=== PATIENT | female | born 1950 | race Caucasian/White ===

== ENCOUNTER 2017-04-20 14:15 | Emergency (ER) | payer OTHER ==
--- NOTE | 2017-04-20 16:45 | XRAY Preliminary Report ---
Exam: XR KNEE 4 VIEW LT IMPRESSION: Mild degenerative joint disease with loose body and effusion. [facility] SITE ID: [id number]
--- NOTE | 2017-04-20 16:48 | XRAY Preliminary Report ---
Exam: XR FOOT 3 VIEW LT IMPRESSION: Soft tissue swelling. [facility] SITE ID: [id number]
--- NOTE | 2017-04-20 16:48 | XRAY Report ---
EXAM: LEFT KNEE RADIOGRAPHY EXAM DATE: 04/20/2017 04:28 PM. CLINICAL HISTORY: Fall, pain. COMPARISON: None. TECHNIQUE: 4 views, including oblique views. FINDINGS: Bones: Osteopenia. No definite fracture or other bone lesion. Joints: Mild 3 compartment joint space narrowing with marginal lipping. Moderate joint effusion. At l east one loose body in posterior knee. Soft Tissues: Unremarkable. IMPRESSION: Mild degenerative joint disease with loose body and effusion. [facility] Referring Provider Line: [phone] SITE ID: [id number]
--- NOTE | 2017-04-20 16:51 | XRAY Report ---
EXAM: LEFT FOOT RADIOGRAPHY EXAM DATE: 04/20/2017 04:28 PM. CLINICAL HISTORY: Trauma, pain. COMPARISON: None. TECHNIQUE: 3 views. FINDINGS: Bones: Osteopenia. No definite fracture or other bone lesion. Joints: Marked degenerative changes in the first MTP joint. Otherwise unremarkable. Soft Tissues: Mild soft tissue swelling over the dorsum of the foot. IMPRESSION: Soft tissue swelling. [facility] Referring Provider Line: [phone] SITE ID: [id number]
[2017-04-20] MEDS ORDERED: ACETAMINOPHEN 325 MG TABLET PO STA (17:02)
--- NOTE | 2017-04-20 17:05 | ED Physician Documentation ---
PD HPI SYNCOPE - Stated complaint Stated Complaint: LEFT LEG PX/GLF - Chief complaint Chief Complaint: Ext Problem - History obtained from History obtained from: Patient, Friend - History of Present Illness Witnessed: Unwitnessed Timing - onset: Last night Duration: Unknown Preceding symptoms: Light headed Associated symptoms: No: Seizure, Incontinant of urine, Incontinant of stool, Headache, Vision changes, Chest pain, Palpitations, Diaphoresis, Dyspnea, Nausea / vomiting, Abdominal pain Contributing factors: No: Recent med change, Decreased PO intake, Noxious stimulae, Emotional upset, Just stood up, Exertion Injury occurred: Fell, Other (L knee, ankle and foot pain.). No: Head injury, Neck injury Pain level max: 7 Pain level now: 5 Treatment [employer]ICIAN: Other (none) Similar symptoms before: Other (states thinks she may have passed out and bent her knee behind her. She also thinks she may have tripped. Similar events a month ago. Has an appt with neurology and her PCP in the next week.) Review of Systems Ten Systems: 10 systems reviewed and negative Constitutional: denies: Fever, Chills Ears: denies: Ear pain Nose: denies: Rhinorrhea / runny nose Respiratory: denies: Cough GI: denies: Nausea, Vomiting, Diarrhea Skin: denies: Rash Musculoskeletal: denies: Neck pain, Back pain, Extremity swelling Neurologic: denies: Focal weakness, Numbness, Headache PD PAST MEDICAL HISTORY - Past Medical History Cardiovascular: Atrial fibrillation Psych: Depression, Anxiety Musculoskeletal: Fibromyalgia - Past Surgical History Past Surgical History: Yes General: Cholecystectomy, Gastric surgery Ortho: Spine surgery - Present Medications Home Medications: Ambulatory Orders Medication Instructions Recorded Confirmed Losartan [Cozaar] 50 mg PO DAILY 04/21/14 04/20/17 Multivitamin [Multi Vitamin Daily] 1 tab PO DAILY 04/21/14 04/20/17 SUMAtriptan succinate [Sumatriptan 100 mg PO DAILY PRN 04/21/14 04/20/17 Succinate] Apixaban [Eliquis] 5 mg PO DAILY 01/06/15 04/20/17 lamoTRIgine [LaMICtal] 300 mg PO DAILY 01/06/15 04/20/17 Fluoxetine HCl [Prozac] 20 mg PO BID 04/20/17 04/20/17 Gabapentin 100 mg PO TID 04/20/17 04/20/17 Gabapentin [Neurontin] 600 mg PO DAILY 04/20/17 04/20/17 Hydrocodone/Acetaminophen 1 - 2 each PO Q6H PRN #14 tablet 04/20/17 [Hydrocodon-Acetaminophen 5-325] Prazosin [Minipress] 3 mg PO TID 04/20/17 04/20/17 Ramelteon [Rozerem] 8 mg PO DAILY 04/20/17 04/20/17 - Allergies Allergies/Adverse Reactions: Allergies Allergy/AdvReac Type Severity Reaction Status Date / Time diclofenac sodium * Allergy Unknown Verified 04/20/17 14:25 [From Arthrotec] hornet venom Allergy Anaphylaxis Verified 04/20/17 14:25 iodine Allergy Rash Verified 04/20/17 14:25 misoprostol [From Arthrotec] Allergy Unknown Verified 04/20/17 14:25 morphine Allergy Unknown Verified 04/20/17 14:25 streptomycin [Streptomycin] Allergy Unknown Verified 04/20/17 14:25 - Social History Does the pt smoke?: No Smoking Status: Never smoker Does the pt drink ETOH?: No Does the pt have substance abuse?: No - Immunizations Immunizations are current?: Yes - POLST Patient has POLST: No PD ED PE NORMAL - Vitals Vital signs reviewed: Yes - General General: Alert and oriented X 3, No acute distress - HEENT HEENT: Atraumatic, PERRL, EOMI, Ears normal, Moist mucous membranes, Pharynx benign - Neck Neck: Supple, no meningeal sign, No bony TTP - Cardiac Cardiac: RRR, Strong equal pulses - Respiratory Respiratory: No respiratory distress, Clear bilaterally - Abdomen Abdomen: Soft, Non tender, Non distended - Back Back: No spinal TTP - Derm Derm: Warm and dry, No rash - Extremities Extremities: Other (L knee - ACL, MCL, LCL, PCL intact. NVI. no significant effusion. Mild TTP over L lateral malleolus and dorsum of L foot. No deformity. NVI.) - Neuro Neuro: Alert and oriented X 3, civil rights representative 2-12 intact, No motor deficit, No sensory deficit, Normal speech - Psych Psych: Normal mood, Normal affect Results - Vitals Vitals: Vital Signs - 24 hr 04/20/17 04/20/17 04/20/17 14:20 16:18 17:28 Temperature 36.4 C L 36.8 C Heart Rate 87 91 62 Respiratory 16 16 16 Rate Blood Pressure 117/73 114/43 L 157/92 H O2 Saturation 99 97 100 04/20/17 18:25 Temperature Heart Rate 60 Respiratory 16 Rate Blood Pressure 160/91 H O2 Saturation 98 Oxygen O2 Source Room air - EKG (time done) 1651 Rate: Rate (enter#) (61) Rhythm: NSR [place]: Normal Intervals: Normal [place] QRS: Normal Ischemia: Normal ST segments, Q waves (III, aVF) - Labs Labs: Laboratory Tests 04/20/17 04/20/17 04/20/17 17:10 17:10 17:10 WBC 4.0 L RBC 3.85 L Hgb 12.3 Hct 36.8 L MCV 95.5 MCH 31.9 H MCHC 33.4 RDW 14.9 Plt Count 208 MPV 6.1 L Neut # 2.6 Lymph # 0.7 L [place] # 0.5 Eos # 0.2 Baso # 0.0 Absolute Nucleated RBC 0.00 Nucleated RBC % 0.0 Sodium 136 Potassium 4.4 Chloride 102 Carbon Dioxide 28 Anion Gap 6.0 BUN 23 H Creatinine 1.0 Estimated GFR (MDRD) 56 L Glucose 93 Calcium 9.0 Total Bilirubin 0.4 AST 18 ALT 14 Alkaline Phosphatase 93 Troponin I < 0.04 Total Protein 7.4 Albumin 4.0 Globulin 3.4 Albumin/Globulin Ratio 1.2 Lipase 33 - Rads (name of study) L knee xray Radiology: Prelim report reviewed, EMP read contemporaneously, See rad report ( Mild degenerative joint disease with loose body and effusion. ) L ankle xray Radiology: Prelim report reviewed, EMP read contemporaneously, See rad report ( No evidence of fracture or dislocation. ) L foot xray Radiology: Prelim report reviewed, EMP read contemporaneously, See rad report ( Soft tissue swelling. ) PD MEDICAL DECISION MAKING - ED course Complexity details: reviewed results, re-evaluated patient, considered differential, d/w patient, d/w family ED course: Patient is a 66-year-old female who presents to the emergency department after a fall versus syncopal event last night. No acute findings on EKG telemetry or laboratory testing. States she has passed out several times in the past with no cause found, is being evaluated by her doctor for this. Placed in a hinged knee brace for the left knee sprain with effusion. Will have her follow-up with orthopedics and her doctor for further evaluation and care. Will prescribe pain medication for home. Has a walker at home and will utilize this. Ambulating well once placed into the brace. The brace was set at 0-40. Patient counseled regarding signs and symptoms for which I believe and urgent re-evaluation would be necessary. Patient with good understanding of and agreement to plan and is comfortable going home at this time This document was made in part using voice recognition software. While efforts are made to proofread this document, sound alike and grammatical errors may occur. Departure - Departure Disposition: Home, Self Care Clinical Impression: Knee sprain Qualifiers: Encounter type: initial encounter Involved ligament of knee: unspecified ligament Laterality: left Qualified Code(s): S83.92XA - Sprain of unspecified site of left knee, initial encounter Contusion of ankle, left Qualifiers: Encounter type: initial encounter Qualified Code(s): S90.02XA - Contusion of left ankle, initial encounter Condition: Good Instructions: ED Sprain Knee, ED Sprain Ankle Follow-Up: Stacy Curran DO [Physician No Access] - [facility] [Provider Group] - Within 1 week Prescriptions: Hydrocodone/Acetaminophen [Hydrocodon-Acetaminophen 5-325] 1 - 2 each PO Q6H PRN #14 tablet PRN Reason: pain Comments: Return if you worsen. Follow-up with your doctor for repeat evaluation within 1 week. Wear the knee brace as needed for comfort. Do not drink alcohol or drive while on narcotic pain medicine. Note that many narcotic pain relievers also contain tylenol/acetaminophen. Please ensure that your total dose of acetaminophen from all sources does not exceed 3 grams (3000mg) per day. You may constipated on this medication, take a stool softener such as "Colace" twice a day while you are on it. Also recommend a kzfl-sjg-vwndaig laxative such as senna or MiraLAX any day that you do not have a bowel movement. If you received narcotic pain medication in the emergency department, do not drive or operate machinery for the next 24 hours. Discharge Date/Time: 04/20/17 18:48
[2017-04-20 17:18] LABS: EOSINOPHILS # (AUTO) 0.2 10^3/uL (0.0-0.7); EOSINOPHILS % (AUTO) 5.2 %; HCT - HEMATOCRIT 36.8 % (37.0-47.0); HGB - HEMOGLOBIN 12.3 g/dL (12.0-16.0); LYMPHOCYTES # (AUTO) 0.7 10^3/uL (1.5-3.5); LYMPHOCYTES % (AUTO) 16.4 %; MEAN CORPUSCULAR HEMOGLOBIN 31.9 pg (27.0-31.0); MEAN CORPUSCULAR HGB CONC 33.4 g/dL (32.0-36.0); MEAN CORPUSCULAR VOLUME 95.5 fL (81.0-99.0); MEAN PLATELET VOLUME 6.1 fL (7.9-10.8); MONOCYTES # (AUTO) 0.5 10^3/uL (0.0-1.0); MONOCYTES % (AUTO) 11.8 %; NEUTROPHILS # (AUTO) 2.6 10^3/uL (1.5-6.6); NEUTROPHILS % (AUTO) 65.6 %; RED BLOOD COUNT 3.85 10^6/uL (4.20-5.40); RED CELL DISTRIBUTION WIDTH 14.9 % (12.0-15.0)
[2017-04-20] MEDS ORDERED: ACETAMINOPHEN 325 MG TABLET PO ONE (17:19)
--- NOTE | 2017-04-20 17:24 | XRAY Preliminary Report ---
Exam: XR ANKLE 3 VIEW LT IMPRESSION: No evidence of fracture or dislocation. [facility] SITE ID: [id number]
--- NOTE | 2017-04-20 17:26 | XRAY Report ---
EXAM: LEFT ANKLE RADIOGRAPHY EXAM DATE: 04/20/2017 05:09 PM. CLINICAL HISTORY: Left ankle pain COMPARISON: None. TECHNIQUE: 3 views. FINDINGS: Bones: No fracture or focal bony lesion. Joints: No evidence of dislocation. Soft Tissues: No unexpected soft tissue findings. IMPRESSION: No evidence of fracture or dislocation. [facility] Referring Provider Line: [phone] SITE ID: [id number]
[2017-04-20 17:27] LABS: ALBUMIN/GLOBULIN RATIO 1.2 (1.0-2.2); BILIRUBIN,TOTAL 0.4 mg/dL (0.2-1.0); POTASSIUM 4.4 mmol/L (3.5-5.0); TOTAL PROTEIN 7.4 g/dL (6.7-8.2)
[2017-04-20] MEDS ORDERED: oxyCODONE 5 MG TABLET PO STA (17:58)
[2017-04-20] MEDS ORDERED: oxyCODONE 5 MG TABLET ONE (18:15)
[2017-04-20 18:26] VITALS: BP 160/91
== END 2017-04-20 18:48 | disposition home or self-care (01) ==
LOC: ED 14:15
DX: S83.92XA Sprain of unspecified site of left knee, initial encounter (principal); S90.02XA Contusion of left ankle, initial encounter; W19.XXXA Unspecified fall, initial encounter; R94.31 Abnormal electrocardiogram [ECG] [EKG]; M25.462 Effusion, left knee; Z98.84 Bariatric surgery status
CPT/HCPCS: 36415; 73564; 73610; 73630; 80053; 83690; 84484; 85025; 93005; 99283; 99284; A9270

== ENCOUNTER 2019-07-12 08:37 | Outpatient (CLI) | payer MEDICARE, OTHER | END 2019-07-12 08:38 | disposition critical access hospital (66) | LOC: EMS 08:37 | PROVIDERS: ATTEND Surgery | DX: R53.1 Weakness (principal); R41.82 Altered mental status, unspecified; R29.810 Facial weakness | CPT/HCPCS: A0425; A0429 ==

== ENCOUNTER 2019-07-12 08:47 | Observation (INO) | payer MEDICARE, OTHER ==
[2019-07-12] MEDS ORDERED: SODIUM CHLORIDE 0.9% 1,000 ML IV ONE (09:00)
--- NOTE | 2019-07-12 09:01 | ED Physician Documentation ---
History of Present Illness - Stated complaint Stated Complaint: POSS CVA - History obtained from History obtained from: Patient, Family, EMS - History of Present Illness Timing: Prior to arrival - Additonal information Additional information: This is a 68-year-old woman is brought in by EMS after having "strokelike symptoms" at home.The EMS arrived at the patient's home to find her sitting slouched over and possible right facial droop. Her blood sugar was 179. Apparently she woke up little bit in the rig but was still pretty groggy her blood pressures were in the 80s and 90s systolic. Her had reported flulike symptoms prior to calling 911 this morning and she has a history of TIAs. When her arrived he said that she has been coughing a lot the last few days and then this morning he was headed out the door to work when he heard something in the bedroom and went in and found her on the floor beside the bed kind of between the bed and the nightstand. She was minimally responsive and so he called 911. He also reports a hospitalization for C. difficile 2 years ago in [place] that lasted 11 days and so he wanted to mention that because of the fact that I was concerned she was septic. Patient herself is able to provide very minimal information at this time she could tell me that she was at the hospital but that was about it. She was not completely aware of what was happening and very weak. Review of Systems Unable to obtain: AMS Constitutional: denies: Fever (Unknown) Respiratory: reports: Cough GI: denies: Nausea, Vomiting, Diarrhea : denies: Dysuria Neurologic: reports: Syncope. denies: Headache PD PAST MEDICAL HISTORY - Past Medical History Cardiovascular: Atrial fibrillation Psych: Depression, Anxiety Musculoskeletal: Fibromyalgia - Past Surgical History Past Surgical History: Yes General: Cholecystectomy, Gastric surgery Ortho: Spine surgery - Present Medications Home Medications: Ambulatory Orders Medication Instructions Recorded Confirmed Losartan [Cozaar] 50 mg PO DAILY 04/21/14 04/20/17 Multivitamin [Multi Vitamin Daily] 1 tab PO DAILY 04/21/14 04/20/17 SUMAtriptan succinate [Sumatriptan 100 mg PO DAILY PRN 04/21/14 04/20/17 Succinate] lamoTRIgine [LaMICtal] 300 mg PO DAILY 01/06/15 04/20/17 Fluoxetine HCl [Prozac] 20 mg PO BID 04/20/17 07/12/19 Gabapentin 100 mg PO TID PRN 04/20/17 07/12/19 Ramelteon [Rozerem] 8 mg PO DAILY 04/20/17 04/20/17 Alendronate Sodium 70 mg PO Q7D 07/12/19 07/12/19 Apixaban [Eliquis] 5 mg PO BID 07/12/19 07/12/19 Gabapentin [Neurontin] 600 mg PO BID 07/12/19 07/12/19 Hydrochlorothiazide 12.5 mg PO DAILY 07/12/19 07/12/19 Prazosin HCl [Minipress] 2 mg PO QPM 07/12/19 07/12/19 QUEtiapine [SEROquel] 150 mg PO QPM 07/12/19 07/12/19 Trazodone HCl 150 mg PO QPM 07/12/19 07/12/19 Zolpidem Tartrate 5 mg PO .3XWEEK PRN 07/12/19 07/12/19 Zolpidem Tartrate [Ambien Cr] 6.25 mg PO .3XWEEK PRN 07/12/19 07/12/19 - Allergies Allergies/Adverse Reactions: Allergies Allergy/AdvReac Type Severity Reaction Status Date / Time diclofenac sodium * Allergy Unknown Verified 04/20/17 14:25 [From Arthrotec] hornet venom Allergy Anaphylaxis Verified 04/20/17 14:25 iodine Allergy Rash Verified 04/20/17 14:25 misoprostol [From Arthrotec] Allergy Unknown Verified 04/20/17 14:25 morphine Allergy Unknown Verified 04/20/17 14:25 streptomycin [Streptomycin] Allergy Unknown Verified 04/20/17 14:25 - Social History Does the pt smoke?: No Smoking Status: Never smoker Does the pt drink ETOH?: No Does the pt have substance abuse?: No - Immunizations Immunizations are current?: Yes - POLST Patient has POLST: No PD ED PE NORMAL - Vitals Vital signs reviewed: Yes - General General: Other (Very pale. She will open her eyes butVery pale. She will open her eyes but). No: Alert and oriented X 3 - HEENT HEENT: Atraumatic ( sponsor.), Other (No scleral icterus. Mucous membranes are very pale) - Cardiac Cardiac: RRR, No murmur, Other (Weak radial pulses) - Respiratory Respiratory: No respiratory distress, Other (Will take an effort to take a deep breath.) - Abdomen Abdomen: Normal bowel sounds, Soft, No organomegaly - Derm Derm: Other (Very pale) - Neuro Neuro: Other (Patient is so weak that she can even follow commands to lift any of her extremities off the bed. If I try to hold her arm up and let it go it just drops immediately to the floor. If we just rest the arm and bend the elbow the forearm, drifts down back down to the bed. She cannot even move her legs at all at this point. Sensation is intact to light touch. I do not appreciate any facial droop.). No: Alert and oriented X 3 Results - Vitals Vitals: Vital Signs - 24 hr 07/12/19 07/12/19 07/12/19 08:50 09:06 09:07 Temperature 36.5 C Heart Rate 83 75 Respiratory 16 16 Rate Blood Pressure 75/53 L 73/54 L O2 Saturation 92 88 L 99 07/12/19 07/12/19 07/12/19 09:29 09:45 10:16 Temperature Heart Rate 64 62 Respiratory 16 18 Rate Blood Pressure 80/55 L 83/55 L 83/54 L O2 Saturation 97 100 07/12/19 10:51 Temperature Heart Rate 59 L Respiratory 18 Rate Blood Pressure 107/63 O2 Saturation 99 Oxygen O2 Source Nasal cannula - EKG (time done) 0915 Rate: Rate (enter#) (68) Rhythm: NSR Intervals: No: Wide QRS Ischemia: Non specific changes - Labs Labs: Laboratory Tests 07/12/19 07/12/19 07/12/19 09:08 09:08 09:08 WBC 3.7 L RBC 3.91 L Hgb 10.6 L Hct 33.9 L MCV 86.7 MCH 27.1 MCHC 31.3 L RDW 16.1 H Plt Count 195 MPV 8.6 Neut # (Auto) 2.6 Lymph # (Auto) 0.8 L [place] # (Auto) 0.3 Eos # (Auto) 0.0 Baso # (Auto) 0.0 Absolute Nucleated RBC 0.00 Nucleated RBC % 0.0 PT 16.8 H INR 1.5 H VBG pH VBG pCO2 VBG pO2 VBG HCO3 VBG Total CO2 VBG O2 Saturation VBG Base Excess Sodium 132 L Potassium 2.8 L Chloride 93 L Carbon Dioxide 24 Anion Gap 15.0 H BUN 26 H Creatinine 2.0 H Estimated GFR (MDRD) 25 L Glucose 158 H Lactic Acid Calcium 7.9 L Total Bilirubin 0.7 AST 36 ALT 18 Alkaline Phosphatase 78 Troponin I High Sens Total Protein 6.9 Albumin 3.2 Globulin 3.7 Albumin/Globulin Ratio 0.9 L Lipase 41 Urine Color Urine Clarity Urine pH Ur Specific [place] Urine Protein Urine Glucose (UA) Urine Ketones Urine Occult Blood Urine Nitrite Urine Bilirubin Urine Urobilinogen Ur Leukocyte Esterase Urine RBC Urine WBC Ur Epithelial Cells Ur Squamous Epith Cells Amorphous Sediment Urine Bacteria Urine Casts Ur Microscopic Review Urine Culture Comments Influenza A (Rapid) Influenza B (Rapid) 07/12/19 07/12/19 07/12/19 09:08 09:08 09:08 WBC RBC Hgb Hct MCV MCH MCHC RDW Plt Count MPV Neut # (Auto) Lymph # (Auto) [place] # (Auto) Eos # (Auto) Baso # (Auto) Absolute Nucleated RBC Nucleated RBC % PT INR VBG pH 7.443 H VBG pCO2 36.0 L VBG pO2 33.1 VBG HCO3 24.1 VBG Total CO2 25.2 VBG O2 Saturation 66.5 VBG Base Excess 0.3 Sodium Potassium Chloride Carbon Dioxide Anion Gap BUN Creatinine Estimated GFR (MDRD) Glucose Lactic Acid 2.1 Calcium Total Bilirubin AST ALT Alkaline Phosphatase Troponin I High Sens 43.0 H* Total Protein Albumin Globulin Albumin/Globulin Ratio Lipase Urine Color Urine Clarity Urine pH Ur Specific [place] Urine Protein Urine Glucose (UA) Urine Ketones Urine Occult Blood Urine Nitrite Urine Bilirubin Urine Urobilinogen Ur Leukocyte Esterase Urine RBC Urine WBC Ur Epithelial Cells Ur Squamous Epith Cells Amorphous Sediment Urine Bacteria Urine Casts Ur Microscopic Review Urine Culture Comments Influenza A (Rapid) Influenza B (Rapid) 07/12/19 07/12/19 09:21 10:00 WBC RBC Hgb Hct MCV MCH MCHC RDW Plt Count MPV Neut # (Auto) Lymph # (Auto) [place] # (Auto) Eos # (Auto) Baso # (Auto) Absolute Nucleated RBC Nucleated RBC % PT INR VBG pH VBG pCO2 VBG pO2 VBG HCO3 VBG Total CO2 VBG O2 Saturation VBG Base Excess Sodium Potassium Chloride Carbon Dioxide Anion Gap BUN Creatinine Estimated GFR (MDRD) Glucose Lactic Acid Calcium Total Bilirubin AST ALT Alkaline Phosphatase Troponin I High Sens Total Protein Albumin Globulin Albumin/Globulin Ratio Lipase Urine Color DARK YELLOW Urine Clarity SL. CLOUDY Urine pH Ur Specific [place] >=1.030 H Urine Protein Urine Glucose (UA) Urine Ketones Urine Occult Blood TRACE-INTA Urine Nitrite Urine Bilirubin MODERATE H Urine Urobilinogen Ur Leukocyte Esterase NEGATIVE Urine RBC 6-10 H Urine WBC 4-5 Ur Epithelial Cells FEW Renal Tubular Ur Squamous Epith Cells RARE Squamous Amorphous Sediment Few Urine Bacteria Moderate H Urine Casts 3-5 Granular Casts Ur Microscopic Review INDICATED Urine Culture Comments INDICATED Influenza A (Rapid) Negative Influenza B (Rapid) Negative - Rads (name of study) CXR Radiology: EMP read contemporaneously (neg acute) PD MEDICAL DECISION MAKING - ED course Complexity details: reviewed results, re-evaluated patient, d/w patient, d/w family ED course: Patient's blood pressure was in the 70s systolic. She was given a liter of saline followed by 2 L of lactated Ringer's before her blood pressure came up over 100. Her map stayed above 60. She was looking much better and was able to answer questions better after her blood pressure was up. Her potassium came back at 2.8 so she is written for IV supplementation. White blood cell count is normal. Her chest x-ray does not show pneumonia. Her urinalysis was very concentrated but there were many bacteria by straight cath specimen so she is given Rocephin IV and I discussed with the hospitalist who is going to admit the patient for stabilization and treatment. - Critical Care Time(min): 40 Time Includes: Direct patient care, Review records, Reassess patient, Document care, Coordinate care, Medical consult Data interpretation: Labs, Pulse ox, CXR Departure - Departure Disposition: 66 [facility] DC/Xfer Clinical Impression: Dehydration Sepsis Qualifiers: Sepsis type: sepsis due to unspecified organism Sepsis acute organ dysfunction status: unspecified Qualified Code(s): A41.9 - Sepsis, unspecified organism Urinary tract infection Qualifiers: Urinary tract infection type: site unspecified Hematuria presence: without hematuria Qualified Code(s): N39.0 - Urinary tract infection, site not specified
[2019-07-12 09:13] LABS: VBG BASE EXCESS 0.3 mmol/L (-2 - +2); VBG PH 7.443 (7.31-7.41); VBG PO2 33.1 mmHg (25-47); VBG TOTAL CO2 25.2 mmol/L (24-29)
[2019-07-12 09:18] LABS: BASOPHILS % (AUTO) 0.3 %; EOSINOPHILS % (AUTO) 0.3 %; HGB - HEMOGLOBIN 10.6 g/dL (12.0-16.0); LYMPHOCYTES # (AUTO) 0.8 10^3/uL (1.5-3.5); LYMPHOCYTES % (AUTO) 22.3 %; MEAN CORPUSCULAR HEMOGLOBIN 27.1 pg (27.0-31.0); MEAN CORPUSCULAR HGB CONC 31.3 g/dL (32.0-36.0); MEAN CORPUSCULAR VOLUME 86.7 fL (81.0-99.0); MEAN PLATELET VOLUME 8.6 fL (7.9-10.8); MONOCYTES # (AUTO) 0.3 10^3/uL (0.0-1.0); MONOCYTES % (AUTO) 6.8 %; NEUTROPHILS # (AUTO) 2.6 10^3/uL (1.5-6.6); PLT - PLATELET COUNT 195 10^3/uL (130-450); RED BLOOD COUNT 3.91 10^6/uL (4.20-5.40); RED CELL DISTRIBUTION WIDTH 16.1 % (12.0-15.0); WHITE BLOOD COUNT 3.7 x10^3/uL (4.8-10.8)
[2019-07-12] MEDS ORDERED: LACTATED RINGERS 1,000 ML IV STA ×2 (09:20→09:58)
[2019-07-12 09:27] LABS: ALBUMIN 3.2 g/dL (3.2-5.5); ALBUMIN/GLOBULIN RATIO 0.9 (1.0-2.2); BILIRUBIN,TOTAL 0.7 mg/dL (0.2-1.0); CALCIUM 7.9 mg/dL (8.5-10.3); TOTAL PROTEIN 6.9 g/dL (6.7-8.2)
[2019-07-12 09:28] LABS: INR 1.5 (0.8-1.2); PT - PROTHROMBIN TIME 16.8 secs (9.9-12.6)
--- NOTE | 2019-07-12 09:40 | XRAY Report ---
Reason: chest pain Procedure Date: 07/12/2019 Accession Number: [id number] / [id number] Procedure: XR - Chest 1 View X-Ray CPT Code: 22821 Final Report FULL RESULT: EXAM: CHEST RADIOGRAPHY 1 VIEW EXAM DATE: 07/12/2019. CLINICAL HISTORY: Chest pain. COMPARISON: PA and lateral chest on 02/07/2008. TECHNIQUE: AP upright portable chest at 0857. FINDINGS: Lungs/Pleura: Normal vasculature. Small linear opacity in the right upper lung. Lungs are otherwise clear. No pleural fluid or pneumothorax. Mediastinum: Normal cardiac and mediastinal contours. Bones: Degenerative changes of the spine and shoulders. Slight elongation of the C7 transverse process bilaterally. Other: Multiple left upper abdominal surgical clips. IMPRESSION: Small focus of atelectasis or scar of the right upper lung. Otherwise no radiographic cardiopulmonary abnormality. [facility]
[2019-07-12 10:16] LABS: LEUKOCYTE ESTERASE, URINE NEGATIVE (NEGATIVE); OCCULT BLOOD,URINE TRACE-INTA (NEGATIVE)
[2019-07-12 10:24] LABS: BILIRUBIN,URINE MODERATE (NEGATIVE); CLARITY,URINE SL. CLOUDY (CLEAR); ICTOTEST,URINE POSITIVE
[2019-07-12 10:26] LABS: BACTERIA,URINE Moderate /HPF (None Seen); EPITHELIAL CELLS,UR FEW Renal Tubular /HPF (<= Few); SQUAMOUS EPITHELIAL CELL,UR RARE Squamous (<= Few)
[2019-07-12 10:27] LABS: AMORPHOUS SEDIMENT,UR Few /LPF
[2019-07-12] MEDS ORDERED: POTASSIUM CHLOR 10 MEQ/100 ML 10 MEQ/100 ML BAG IV STA (10:30)
[2019-07-12] MEDS ORDERED: cefTRIAXone 2 GM in SODIUM CHLORIDE 0.9% MINIBAG 100 ML IV STA (10:38)
[2019-07-12] MEDS ORDERED: cefTRIAXone 2 GM VIAL ONE (10:41)
[2019-07-12] MEDS ORDERED: ONDANSETRON 4 MG/2 ML VIAL IVP PRN (11:06)
[2019-07-12] MEDS ORDERED: ACETAMINOPHEN 325 MG TABLET PO PRN (11:06)
[2019-07-12] MEDS ORDERED: SODIUM CHLORIDE FLUSH 0.9% 10 ML SYRINGE IVP PRN (11:06)
[2019-07-12] MEDS ORDERED: ZOLPIDEM 5 MG TABLET PO PRN (11:06)
[2019-07-12] MEDS ORDERED: GABAPENTIN 100 MG CAPSULE PO PRN (11:17)
[2019-07-12] MEDS ORDERED: ZOLPIDEM TARTRATE 6.25 MG PO PRN (11:17)
--- NOTE | 2019-07-12 11:29 | HISTORY & PHYSICAL EXAMINATION ---
Chief Complaint - Chief Complaint Chief Complaint: syncope History of Present Illness - History of Present Illness HPI Comment/Other: This is a 68-year-old woman with a PMH of afib with eliquis, depression, anxiety, and fibromyalgia, who present ER complain of fall and weakness. pt report she has been sick for about a week with a cough. she report she had cough for over month then she was better but her grand children became sick, she was sick again with persisting cough, sinusitis congestion. Her heard patient fall along with wall this morning. pt denies loss of conscience or any injury. she report she had no drinking or eating for two days because of her sickness. she denies any focus neurological deficit, speech problem. CT of head reveals unremarkable except pansinusitis, diffuse acute on chronic sinusitis is evidence. CXR reveals small focus of atelectasis otherwise unremarkable. Initially in ER pt present remarkable hypotension with BP at 75/53. pt is afebrile. Route lab test reveals significant elevated creatinine to 2.0. p otassium 2.8, sodium 132. UA analysis indicate UTI. pt denies chest pain, fever, chill, shortness of breath. pt is admitted for above medical reason. History - Past Medical History Cardiovascular: reports: Atrial fibrillation Psych: reports: Depression, Anxiety Musculoskeletal: reports: Fibromyalgia MRSA Hx?: No - Past Surgical History General: reports: Cholecystectomy, Gastric surgery Ortho: reports: Spine surgery - Family & Social History Family History: Mother: , Cancer, Diabetes, Type 2, Father: , Diabetes, Type 2 Family History Comment/Other: pt report her father had hx of Dm2, and from spesis infection. her mother had hx of heart failure and from pancreatic cancer. Living arrangement: At home Living Situation: With spouse/s.o. Social History Notes: pt denies smoking hx, pt report she quit alcoholism 30 yrs ago. - POLST Patient has POLST: No Meds/Allgy - Home Medications Home Medications: Ambulatory Orders Medication Instructions Recorded Confirmed Losartan [Cozaar] 50 mg PO DAILY 04/21/14 07/12/19 Multivitamin [Multi Vitamin Daily] 1 tab PO DAILY 04/21/14 07/12/19 Fluoxetine HCl [Prozac] 20 mg PO BID 04/20/17 07/12/19 Gabapentin 100 mg PO DAILY 04/20/17 07/12/19 Alendronate Sodium 70 mg PO Q7D 07/12/19 07/12/19 Apixaban [Eliquis] 5 mg PO BID 07/12/19 07/12/19 Famotidine [Pepcid] 20 mg PO QPM 07/12/19 07/12/19 Gabapentin [Neurontin] 600 mg PO QPM 07/12/19 07/12/19 Hydrochlorothiazide 12.5 mg PO DAILY 07/12/19 07/12/19 Prazosin HCl [Minipress] 2 mg PO QPM 07/12/19 07/12/19 QUEtiapine [SEROquel] 150 mg PO QPM 07/12/19 07/12/19 Trazodone HCl 150 mg PO QPM 07/12/19 07/12/19 Zolpidem Tartrate 5 mg PO .3XWEEK PRN 07/12/19 07/12/19 Zolpidem Tartrate [Ambien Cr] 6.25 mg PO .3XWEEK PRN 07/12/19 07/12/19 lamoTRIgine [Lamictal Xr] 300 mg PO DAILY 07/12/19 07/12/19 - Allergies Allergies/Adverse Reactions: Allergies Allergy/AdvReac Type Severity Reaction Status Date / Time diclofenac sodium * Allergy Unknown Verified 04/20/17 14:25 [From Arthrotec] hornet venom Allergy Anaphylaxis Verified 04/20/17 14:25 iodine Allergy Rash Verified 04/20/17 14:25 misoprostol [From Arthrotec] Allergy Unknown Verified 04/20/17 14:25 morphine Allergy Unknown Verified 04/20/17 14:25 streptomycin [Streptomycin] Allergy Unknown Verified 04/20/17 14:25 albuterol AdvReac Anxiety Verified 07/12/19 16:13 Review of Systems - Constitutional Constitutional: reports: Fatigue, Weakness. denies: Fever, Chills, Malaise, Poor appetite, Diaphoresis, Night sweats - Eyes Eyes: denies: Pain, Irritation, Amaurosis, Blurred vision, Spots in vision, Field loss, Vision loss, Dipolpia - Ears, Nose & Throat Ears, Nose & Throat: reports: Nasal discharge. denies: Ear pain, Hearing loss, Hearing aids, Tinnitus, Vertigo, Nasal pain, Nosebleeds, Nasal obstruction, Nasa l congestion, Postnasal drainage, Dentures, Sore throat, Hoarseness, Mouth lesions - Cardiovascular Cariovascular: denies: Irregular heart rate, Palpitations, Chest pain, Edema, Lightheadedness, Syncope, Exertional dyspnea, Decr. exercise tolerance - Respiratory Respiratory: reports: Cough, Sputum production. denies: Wheezing, Snoring, Hemoptysis, Orthopnea, SOB at rest, SOB with exertion - Gastrointestinal Gastrointestinal: denies: Abdominal pain, Abdominal distention, Constipation, Diarrhea, Change in bowel habits, Rectal bleeding, Black stools, Bloody stools, Nausea, Vomiting, Bile emesis, Hugh blood emesis - Genitourinary Genitourinary: denies: Dysuria, Frequency, Urgency, Hematuria, Incontinence, Flank pain, Nocturia, Urethral discharge - Musculoskeletal Musculoskeletal: denies: Muscle pain, Back pain, Muscle aches, Stiffness, Limited range of motion, Muscle weakness, Gout, Joint pain - Integumentary Integumentary: denies: Rash, Pruritis, Lesions, Dryness, Lumps, Acne, Pigment changes, Nail changes - Neurological Neurological: reports: General weakness. denies: Focal weakness, Headache, Dizziness, Numbness, Memory problems, Pre-existing deficit, Abnormal gait, Seizures, Incoordination, Slurred speech - Psychiatric Psychiatric: denies: Depression, Anxiety, Suicidal, Delusions, Hallucinations, Homicidal - Endocrine Endocrine: denies: Polyuria, Polydypsia, Polyphagia, Intolerance to cold - Hematologic/Lymphatic Hematologic/Lymphatic: denies: Anemia, Bruising, Petechiae, Blood clots, Bleeding tendencies Exam - Vital Signs Reviewed Vital Signs: Yes Vital Signs: Vital Signs x48h Temp Pulse Resp BP Pulse Ox 07/12/19 11:28 64 18 104/66 100 07/12/19 10:51 59 L 18 107/63 99 07/12/19 10:16 62 18 83/54 L 100 07/12/19 09:45 83/55 L 07/12/19 09:29 64 16 80/55 L 97 07/12/19 09:07 75 16 73/54 L 99 07/12/19 09:06 88 L 07/12/19 08:50 36.5 C 83 16 75/53 L 92 - Physical Exam General Appearance: positive: No acute distress, Alert. negative: Lethargic Eyes Bilateral: positive: Normal inspection, PERRL, EOMI, No lid inflammation ENT: positive: ENT inspection nml, Pharynx nml, No signs of dehydration. negat simona: Purulent nasal drainage Neck: positive: Nml inspection, Thyroid nml, No JVD, Trachea midline. negative: Thyromegaly, Lymphadenopathy (R), Lymphadenopathy (L), Stiff neck, Tracheal deviation Respiratory: positive: Chest non-tender, No respiratory distress. negative: Wheezes, Rales, Rhonchi Cardiovascular: positive: Regular rate & rhythm, No murmur, No gallop. negative: Irregularly irregular, Extrasystoles, Tachycardia, Bradycardia, JVD present, Systolic murmur, Diastolic murmur Peripheral Pulses: positive: 2+ Abdomen: positive: Non-tender, No organomegaly, Nml bowel sounds, No distention. negative: Tenderness, Guarding, Rebound Back: positive: Nml inspection. negative: CVA tenderness (R), CVA tenderness (L) Skin: positive: Color nml, No rash, Warm, Dry. negative: Cyanosis, Diaphoresis, Pallor Extremities: positive: Non-tender, Full ROM, Nml appearance. negative: Calf tenderness, Lyssa's sign/cords Neurologic/Psychiatric: positive: Oriented x3, Motor nml, Sensation nml, Mood/affect nml. negative: Weakness, Sensory loss, Facial droop, Slurred/abnml speech, Depressed mood/affect Sepsis Event Note (H) - Evaluation Current Stage of Sepsis: Ruled out Conclusion/Plan - Problem List (1) Hypotension Conclusion/Plan: PT present hypotension at 75/53 at the admission. it seems combination of infection from UTI and severe dehydration. IVF of NS for hydration treat with antibiotics for UTI order ECHO, pt also has hx of afib (2) VALENTÍN (acute kidney injury) Conclusion/Plan: pt's creatinine is 2 from previous 1.0. pt report she did not eat or drink for two days. hydration with IVF, lab monitor (3) Urinary tract infection Conclusion/Plan: UA analysis indicate UTI, treat with Rocephin, followup UA culture Qualifiers: Urinary tract infection type: site unspecified Hematuria presence: without hematuria Qualified Code(s): N39.0 - Urinary tract infection, site not specified (4) Atrial fibrillation and flutter Conclusion/Plan: HR is stable, will continue Eliquis, and tele monitor (5) Anxiety and depression Conclusion/Plan: stable, will continue home as reconciled (6) Fibromyalgia Conclusion/Plan: stable, will continue home meds (7) Elevated troponin Conclusion/Plan: pt has slight elevated troponin but she denies chest pain. EKG is unremarkable for acute variation. it is likely from hydration continue serial troponin (8) Pansinusitis Conclusion/Plan: CT reveals pansinusitis, nasal congestion. start on antibiotics, Rocephin, and Flonase PATI (9) Cough Conclusion/Plan: pt present cough with right side very gently small wheezing and mild crackles. pt denies hx of COPD treat with mucnix, start with Azithyomycin (10) Full code status Conclusion/Plan: pt request full code - Lab Results Fish Bones: 07/12/19 09:08 07/12/19 09:08 Core Measures - Anticipated LOS I expect patient to be DC'd or transferred within 96 hours.: Yes - DVT/VTE - Prophylaxis VTE/DVT Device ordered at admit?: Yes VTE/DVT Prophylaxis med ordered at admit?: Yes
[2019-07-12] MEDS ORDERED: DEXTROSE 5%-LACTATED RINGERS 1,000 ML IV SCH (12:00)
[2019-07-12] MEDS ORDERED: SODIUM CHLORIDE 0.9% 1,000 ML IV SCH (13:00)
--- NOTE | 2019-07-12 13:03 | CT Report ---
Reason: right facial weakness Procedure Date: 07/12/2019 Accession Number: [id number] / [id number] Procedure: CT - HEAD WO CPT Code: Final Report FULL RESULT: EXAM: CT HEAD EXAM DATE: 07/12/2019 11:53 AM. CLINICAL HISTORY: Right facial weakness. COMPARISON: HEAD W/O 01/06/2015 8:08 PM. TECHNIQUE: Multiaxial CT images were obtained from the foramen magnum to the vertex. Reformats: Sagittal and coronal. IV contrast: None. In accordance with CT protocol optimization, one or more of the following dose reduction techniques were utilized for this exam: automated exposure control, adjustment of mA and/or KV based on patient size, or use of iterative reconstructive technique. FINDINGS: Parenchyma: No intraparenchymal hemorrhage. No evidence of mass, midline shift, or CT findings of infarction. Mensah-white differentiation is distinct. Extraaxial Spaces: Normal for age. No subdural or epidural collections identified. Ventricles: Normal in size and position. Sinuses and Orbits: Diffuse paranasal sinus mucosal thickening and partial opacification is seen. Layering fluid levels are seen in bilateral maxillary, sphenoid, and frontal sinuses. The mastoid air cells and middle ear cavities are clear. The orbits are unremarkable. Note is made of bilateral lens removal. Bones: No evidence of fracture or calvarial defect. Other: None. IMPRESSION: 1. No acute intracranial abnormality. No significant interval change. 2. Pansinusitis. Diffuse acute on chronic sinusitis is evident. RADIA
[2019-07-12] MEDS: POTASSIUM CHLOR 10 MEQ/100 ML 10 MEQ/100 ML BAG IV SCH ×4 (14:39→18:09)
[2019-07-12] MEDS ORDERED: IPRATROPIUM/ALBUTEROL 3 ML NEB INH PRN (15:58)
[2019-07-12] MEDS ORDERED: ALBUTEROL NEB 2.5 MG/3 ML INH PRN (15:58)
[2019-07-12 16:07] LABS: ABSOLUTE RETICS # AUTO 0.033 10^6/uL (0.020-0.110); RED BLOOD COUNT 3.75 10^6/uL (4.20-5.40)
[2019-07-12 16:25] LABS: % IRON SATURATION 7 % (20-50); IRON 24 ug/dL (28-170); TOTAL IRON BINDING CAPACITY 344 ug/dL (250-450); TRANSFERRIN 246 mg/dL (192-382)
[2019-07-12 16:42] LABS: FERRITIN 20.1 ng/mL (11.0-306.8)
[2019-07-12] MEDS ORDERED: AZITHROMYCIN 250 MG TABLET PO ONE (17:00)
[2019-07-12] MEDS ORDERED: POTASSIUM CHLORIDE 20 MEQ TABLET PO ONE (17:00)
[2019-07-12] MEDS: FERROUS SULFATE 325 MG TABLET PO SCH (17:08)
[2019-07-12] MEDS: SODIUM CHLORIDE FLUSH 0.9% 10 ML SYRINGE IVP SCH (17:11)
[2019-07-12] MEDS: SACCHAROMYCES BOULARDII 250 MG CAPSULE PO SCH (17:14)
--- NOTE | 2019-07-12 17:27 | PHARMACY PROGRESS NOTE ---
- Best Possible Medication History Admit Date and Time: 07/12/19 1106 Processed by: Pharmacy Medication History completed: Yes Patient Interview: Completed Secondary Source(s): Pharmacy records, Insurance records Patient is not taking gabapentin as prescribed. Orders are for 600mg BID and then 100mg tid prn. Patient is taking 600mg at bedtime and 100mg in am. As the person ultimately responsible for medication therapy, providers are able to order a medication from an existing home medication list in [facility] via the "Reconcile Routine" prior to Confirmation of that medication by application support administrator. Such practice is discouraged except when the physician, in their clinical judgment, deems that a medical need exists for a medication without regard to previous use.
[2019-07-12] MEDS ORDERED: PRAZOSIN 1 MG CAPSULE PO SCH (21:00)
[2019-07-12] MEDS ORDERED: QUEtiapine 100 MG TABLET PO SCH (21:00)
[2019-07-12] MEDS ORDERED: GABAPENTIN 300 MG CAPSULE PO SCH ×2 (21:00)
[2019-07-12] MEDS ORDERED: APIXABAN 2.5 MG TABLET PO SCH (21:00)
[2019-07-12] MEDS ORDERED: traZODone 50 MG TABLET PO SCH (21:00)
[2019-07-12] MEDS: APIXABAN 5 MG TABLET PO SCH (21:16)
[2019-07-12] MEDS: FAMOTIDINE 20 MG TABLET PO SCH (21:17)
[2019-07-12] MEDS: FLUoxetine 10 MG CAPSULE PO SCH (21:18)
[2019-07-12] MEDS: guaiFENesin 600 MG TABLET PO SCH (21:20)
[2019-07-12] MEDS ORDERED: FLUTICASONE NASAL SPRAY NAS SCH (23:00)
[2019-07-13] MEDS: SODIUM CHLORIDE FLUSH 0.9% 10 ML SYRINGE IVP SCH ×2 (00:29→08:59)
[2019-07-13 05:33] LABS: BASOPHILS % (AUTO) 0.4 %; LYMPHOCYTES % (AUTO) 33.5 %; MEAN CORPUSCULAR HEMOGLOBIN 27.7 pg (27.0-31.0); MEAN CORPUSCULAR HGB CONC 31.6 g/dL (32.0-36.0); MEAN CORPUSCULAR VOLUME 87.7 fL (81.0-99.0); MEAN PLATELET VOLUME 8.9 fL (7.9-10.8); NEUTROPHILS % (AUTO) 48.7 %; PLT - PLATELET COUNT 167 10^3/uL (130-450); RED BLOOD COUNT 3.25 10^6/uL (4.20-5.40); RED CELL DISTRIBUTION WIDTH 16.1 % (12.0-15.0); WHITE BLOOD COUNT 2.4 x10^3/uL (4.8-10.8)
[2019-07-13 05:46] LABS: ABNORMAL LYMPHS % (MANUAL) 0 %; BAND NEUTROPHILS % (MANUAL) 0 %; HB2 TOTAL 8.8 g/dL; HEMOGLOBIN A1C 0.31 g/dL; HEMOGLOBIN A1C % 5.4 % (4.6-6.2)
[2019-07-13 05:50] LABS: CALCIUM 7.3 mg/dL (8.5-10.3); CREATININE 0.8 mg/dL (0.4-1.0); MAGNESIUM 1.9 mg/dL (1.7-2.8)
[2019-07-13 06:12] LABS: LYMPHOCYTES # (MANUAL) 0.9 10^3/uL (1.5-3.5); LYMPHOCYTES % (MANUAL) 38 %; MONOCYTES # (MANUAL) 0.2 10^3/uL (0.0-1.0)
[2019-07-13 06:13] LABS: DIFFERENTIAL COMMENT MANUAL DIFFERENTIAL; PLATELET ESTIMATE, MANUAL NORMAL (130-450,000) (NORMAL); PLATELET MORPHOLOGY NORMAL APPEARANCE (NORMAL)
[2019-07-13] MEDS: FAMOTIDINE 20 MG TABLET PO SCH (08:56)
[2019-07-13] MEDS: guaiFENesin 600 MG TABLET PO SCH (08:56)
[2019-07-13] MEDS: APIXABAN 5 MG TABLET PO SCH (08:58)
[2019-07-13] MEDS: LOSARTAN 50 MG TABLET PO SCH ×2 (08:58→11:51)
[2019-07-13] MEDS: SACCHAROMYCES BOULARDII 250 MG CAPSULE PO SCH (08:58)
[2019-07-13] MEDS: FERROUS SULFATE 325 MG TABLET PO SCH (08:58)
[2019-07-13] MEDS: FLUoxetine 10 MG CAPSULE PO SCH (08:58)
[2019-07-13] MEDS ORDERED: AZITHROMYCIN 250 MG TABLET PO SCH (09:00)
[2019-07-13] MEDS ORDERED: cefTRIAXone 2 GM in SODIUM CHLORIDE 0.9% MINIBAG 100 ML IV SCH (09:00)
[2019-07-13] MEDS ORDERED: lamoTRIgine 100 MG TABLET PO SCH (09:00)
[2019-07-13] MEDS ORDERED: FLUoxetine 10 MG CAPSULE PO SCH (09:00)
[2019-07-13] MEDS ORDERED: GABAPENTIN 100 MG CAPSULE PO SCH (09:00)
[2019-07-13] MEDS ORDERED: cefTRIAXone 1 GM in SODIUM CHLORIDE 0.9% MINIBAG 100 ML IV SCH (09:00)
[2019-07-13] MEDS ORDERED: polyethylene glycoL 3350 17 GM PACKET PO SCH (09:00)
[2019-07-13 13:11] LABS: EOSINOPHILS # (AUTO) 0.2 10^3/uL (0.0-0.7); EOSINOPHILS % (AUTO) 6.8 %; LYMPHOCYTES # (AUTO) 0.9 10^3/uL (1.5-3.5); LYMPHOCYTES % (AUTO) 37.3 %; MEAN CORPUSCULAR HEMOGLOBIN 27.4 pg (27.0-31.0); MEAN CORPUSCULAR HGB CONC 31.4 g/dL (32.0-36.0); MEAN CORPUSCULAR VOLUME 87.1 fL (81.0-99.0); MEAN PLATELET VOLUME 8.3 fL (7.9-10.8); MONOCYTES # (AUTO) 0.2 10^3/uL (0.0-1.0); MONOCYTES % (AUTO) 9.3 %; NEUTROPHILS # (AUTO) 1.1 10^3/uL (1.5-6.6); NEUTROPHILS % (AUTO) 46.6 %; PLT - PLATELET COUNT 205 10^3/uL (130-450); RED BLOOD COUNT 3.65 10^6/uL (4.20-5.40); RED CELL DISTRIBUTION WIDTH 16.4 % (12.0-15.0); WHITE BLOOD COUNT 2.4 x10^3/uL (4.8-10.8)
[2019-07-13 13:56] LABS: PLATELET MORPHOLOGY NORMAL APPEARANCE (NORMAL)
[2019-07-13 13:57] LABS: PLATELET ESTIMATE, MANUAL NORMAL (130-450,000) (NORMAL)
--- NOTE | 2019-07-13 14:54 | Discharge Plan ---
Discharge Plan Problem Reviewed?: Yes Disposition: Home, Self Care Condition: Stable Prescriptions: Amoxicillin 500 mg PO BID #12 capsule Ferrous Sulfate 325 mg PO DAILY #15 tablet Saccharomyces Boulardii [Florastor] 250 mg PO DAILY #6 capsule Diet: Regular Activity Restrictions: Activity as Tolerated Shower Restrictions: No (fall precaution) Instruction Topics: Iron tablets capsules extended-release tablets, Saccharomyces boulardii Florastor oral dosage forms, Amoxicillin capsules or tablets Health Concerns: dehydration, pansinusitis Plan of Treatment: you present hospital with severe dehydration, advise you keep hydration in home. you are found to have pansinusitis, antibiotics is prescribed for you to c conyue the treatment course. you are also found to have mild iron deficiency anemia, iron pill is prescribed for you Care Goals: stabilization and improvement of your medical conditions Assessment: discussed with you about the care plan, you understood. Additional Instructions or Follow Up instructions: you may followup your PCP in one week. should your symptoms return or worsen, you may present ER or call 911 for help No Smoking: If you smoke, Please STOP! Call for help. Follow-up with: Bharti Alvarado ARNP [Primary Care Provider] -
--- NOTE | 2019-07-13 15:07 | DISCHARGE SUMMARY ---
Discharge Summary Admit Date: 07/12/19 Discharge Date: 07/13/19 Discharging Provider: Vincent corral Primary Care Provider: Bharti Petty Condition at Discharge: Stable Discharge Disposition: Home, Self Care Discharge Facility Name: home - DIAGNOSES Admission Diagnoses: (1) Hypotension (2) VALENTÍN (acute kidney injury) (3) Urinary tract infection (4) Atrial fibrillation and flutter (5) Anxiety and depression (6) Fibromyalgia (7) Elevated troponin (8) Pansinusitis (9) Cough Discharge Diagnoses with Status of Each Condition: (1) Hypotension resolved. it is likely from pt's severe dehydration. PT/OT evaluated and treated pt, and recommended pt can be safely d/c to home. I saw pt walked in room without any distress or fatigue. (2) VALENTÍN (acute kidney injury) resolved (3) Atrial fibrillation and flutter stable. (4) Anxiety and depression stable (5) Fibromyalgia stable (6) Elevated troponin stable (7) Pansinusitis stable, pt is prescribed antibiotics Amoxicillin (8) Cough resolved. (9)neutropenia chronic. advise pt followup PCP and continue monitor if infection and refer to diet therapist as out-pt - HPI History of Present Illness: This is a 68-year-old woman with a PMH of afib with eliquis, depression, anxiety, and fibromyalgia, who present ER complain of fall and weakness. pt report she has been sick for about a week with a cough. she report she had cough for over month then she was better but her grand children became sick, she was sick again with persisting cough, sinusitis congestion. Her heard patient fall along with wall this morning. pt denies loss of conscience or any injury. she report she had no drinking or eating for two days because of her sickness. she denies any focus neurological deficit, speech problem. CT of head reveals unremarkable except pansinusitis, diffuse acute on chronic sinusitis is evidence. CXR reveals small focus of atelectasis otherwise unremarkable. Initially in ER pt present remarkable hypotension with BP at 75/53. pt is afebrile. Route lab test reveals significant elevated creatinine to 2.0. potassium 2.8, sodium 132. UA analysis indicate UTI. pt denies chest pain, fe kerri, chill, shortness of breath. pt is admitted for above medical reason. - HOSPITAL COURSE Hospital Course: pt was admitted for severe dehydration, hypotension, VALENTÍN. pt was treated hydration, initially treat with antibiotics for possible UTI. culture of UA reveals no UTI. CT of head reveals pansinusitis. pt is prescribed Amoxicillin. the detail hospital course is as the follow (1) Hypotension resolved. it is likely from pt's severe dehydration. PT/OT evaluated and treated pt, and recommended pt can be safely d/c to home. I saw pt walked in room without any distress or fatigue. (2) VALENTÍN (acute kidney injury) resolved (3) Atrial fibrillation and flutter stable. (4) Anxiety and depression stable (5) Fibromyalgia stable (6) Elevated troponin stable (7) Pansinusitis stable, pt is prescribed antibiotics Amoxicillin (8) Cough resolved. (9)neutropenia chronic. advise pt followup PCP and continue monitor if infection and refer to diet therapist as out-pt - ALLERGIES Allergies/Adverse Reactions: Allergies Allergy/AdvReac Type Severity Reaction Status Date / Time diclofenac sodium * Allergy Unknown Verified 04/20/17 14:25 [From Arthrotec] hornet venom Allergy Anaphylaxis Verified 04/20/17 14:25 iodine Allergy Rash Verified 04/20/17 14:25 misoprostol [From Arthrotec] Allergy Unknown Verified 04/20/17 14:25 morphine Allergy Unknown Verified 04/20/17 14:25 streptomycin [Streptomycin] Allergy Unknown Verified 04/20/17 14:25 albuterol AdvReac Anxiety Verified 07/12/19 16:13 - MEDICATIONS Home Medications: Ambulatory Orders Medication Instructions Recorded Confirmed Losartan [Cozaar] 50 mg PO DAILY 04/21/14 07/12/19 Multivitamin [Multi-Vitamin Daily] 1 tab PO DAILY 04/21/14 07/12/19 Fluoxetine HCl [Prozac] 20 mg PO BID 04/20/17 07/12/19 Gabapentin 100 mg PO DAILY 04/20/17 07/12/19 Alendronate Sodium 70 mg PO Q7D 07/12/19 07/12/19 Apixaban [Eliquis] 5 mg PO BID 07/12/19 07/12/19 Famotidine [Pepcid] 20 mg PO QPM 07/12/19 07/12/19 Gabapentin [Neurontin] 600 mg PO QPM 07/12/19 07/12/19 Hydrochlorothiazide 12.5 mg PO DAILY 07/12/19 07/12/19 Prazosin HCl [Minipress] 2 mg PO QPM 07/12/19 07/12/19 QUEtiapine [SEROquel] 150 mg PO QPM 07/12/19 07/12/19 Trazodone HCl 150 mg PO QPM 07/12/19 07/12/19 Zolpidem Tartrate 5 mg PO .3XWEEK PRN 07/12/19 07/12/19 Zolpidem Tartrate [Ambien Cr] 6.25 mg PO .3XWEEK PRN 07/12/19 07/12/19 lamoTRIgine [Lamictal Xr] 300 mg PO DAILY 07/12/19 07/12/19 Amoxicillin 500 mg PO BID #12 capsule 07/13/19 Ferrous Sulfate 325 mg PO DAILY #15 tablet 07/13/19 Saccharomyces Boulardii [Florastor] 250 mg PO DAILY #6 capsule 07/13/19 - PHYSICAL EXAM AT DISCHARGE General Appearance: positive: No acute distress, Alert. negative: Lethargic Eyes Bilateral: positive: Normal inspection, PERRL, EOMI, No lid inflammation ENT: positive: ENT inspection nml, Pharynx nml, No signs of dehydration. negative: Purulent nasal drainage Neck: positive: Nml inspection, Thyroid nml, No JVD, Trachea midline. negative: Thyromegaly, Lymphadenopathy (R), Lymphadenopathy (L), Stiff neck, Tracheal deviation Respiratory: positive: Chest non-tender, No respiratory distress, Breath sounds nml. negative: Wheezes, Rales, Rhonchi Cardiovascular: positive: Regular rate & rhythm, No murmur, No gallop. negative: Irregularly irregular, Extrasystoles, Tachycardia, Bradycardia, JVD present, Systolic murmur, Diastolic murmur Peripheral Pulses: positive: 2+ Abdomen: positive: Non-tender, No organomegaly, Nml bowel sounds, No distention. negative: Tenderness, Guarding, Rebound Back: positive: Nml inspection. negative: CVA tenderness (R), CVA tenderness (L) Skin: positive: Color nml, No rash, Warm, Dry. negative: Cyanosis, Diaphoresis, Pallor Extremities: positive: Non-tender, Full ROM, Nml appearance. negative: Calf tenderness, Lyssa's sign/cords Neurologic/Psychiatric: positive: Oriented x3, Motor nml, Sensation nml, Mood/affect nml. negative: Weakness, Sensory loss, Facial droop, Slurred/abnml speech, Depressed mood/affect - LABS Result Diagrams: 07/13/19 12:53 07/13/19 05:00 - SEPSIS Current Stage of Sepsis: Ruled out - FOLLOW UP Follow Up: you present hospital with severe dehydration, advise you keep hydration in home. you are found to have pansinusitis, antibiotics is prescribed for you to robyn ferrer the treatment course. you are also found to have mild iron deficiency anemia, iron pill is prescribed for you you may followup your PCP in one week. should your symptoms return or worsen, you may present ER or call 911 for help - TIME SPENT Time Spent in Discharge (Minutes): 35
[2019-07-13 15:46] VITALS: BP 149/86
== END 2019-07-13 15:55 | disposition home or self-care (01) ==
LOC: EDUNIT# → ED 08:47 → MS2 11:06
PROVIDERS: ADMIT Nurse Practitioner Gerontology; ATTEND Nurse Practitioner Gerontology
DX: N17.9 Acute kidney failure, unspecified (principal); J01.41 Acute recurrent pansinusitis; E86.0 Dehydration; I95.9 Hypotension, unspecified; D70.9 Neutropenia, unspecified; D50.9 Iron deficiency anemia, unspecified; I48.91 Unspecified atrial fibrillation; I48.92 Unspecified atrial flutter; M79.7 Fibromyalgia; F41.9 Anxiety disorder, unspecified; F32.9 Major depressive disorder, single episode, unspecified; R05 Cough; R79.89 Other specified abnormal findings of blood chemistry; F10.21 Alcohol dependence, in remission; Z79.01 Long term (current) use of anticoagulants; Z79.899 Other long term (current) drug therapy; Z86.73 Personal history of transient ischemic attack (TIA), and cerebral infarction without residual deficits
CPT/HCPCS: 36415; 70450; 71045; 80048; 80053; 80175; 81001; 82607; 82728; 82803; 83036; 83540; 83605; 83615; 83690; 83735; 84466; 84484; 85025; 85045; 85610; 87040; 87086; 87275; 87276; 93005; 93306; 96361; 96365; 96366; 96367; 96368; 97161; 99285; 99291; A9270; G0378; J7120; 81003

== ENCOUNTER 2023-04-20 16:15 | Outpatient (CLI) | payer MEDICARE, OTHER | END 2023-04-20 23:59 | disposition critical access hospital (66) | LOC: EMS 16:15 | DX: S01.81XA Laceration without foreign body of other part of head, initial encounter (principal); M25.561 Pain in right knee; W01.198A Fall on same level from slipping, tripping and stumbling with subsequent striking against other object, initial encounter; Y93.01 Activity, walking, marching and hiking; Y92.481 Parking lot as the place of occurrence of the external cause; Z79.01 Long term (current) use of anticoagulants | CPT/HCPCS: A0425; A0429 ==

== ENCOUNTER 2023-04-20 16:33 | Emergency (ER) | payer MEDICARE, OTHER ==
--- NOTE | 2023-04-20 16:44 | ED Physician Documentation ---
PD HPI HEAD INJURY - Stated complaint Stated Complaint: GLF - Chief complaint Chief Complaint: Laceration - History obtained from History obtained from: Patient, EMS, Other (I attended to patient directly on EMS arrival.) - History of Present Illness Mechanism of head injury: Fell Where head injury occurred: Other (parking lot going to a store, tripped on curb. She felt okay prior to fall and remembers it completely without LOC.) Timing - onset: Today Pain level max: 3 Pain level now: 3 Location of injury: Front (fell striking mid forehead with laceration. Bruising on chin as well without any pain on occlusion of teeth. Some pain in neck area with ROM of neck. Right knee also has pain on ROM.) Quality of pain: Pain Associated symptoms: Neck pain. No: LOC, AMS, Nausea / vomiting, Paresthesias Symptoms worsen with: Palpation Contributing factors: Anticoagulated (for atrial fib.). No: Intoxicated Similar symptoms before: Has not had sx before Recently seen: Not recently seen Review of Systems Eyes: denies: Loss of vision, Decreased vision Skin: reports: Laceration (s) (forehead) Musculoskeletal: reports: Neck pain. denies: Back pain Neurologic: reports: Head injury. denies: Focal weakness, Numbness, Syncope, Confused, Altered mental status, Headache, LOC PD PAST MEDICAL HISTORY - Past Medical History Cardiovascular: Atrial fibrillation Respiratory: None Neuro: None Endocrine/Autoimmune: None Psych: Depression, Anxiety Musculoskeletal: Fibromyalgia - Past Surgical History Past Surgical History: Yes General: Cholecystectomy, Gastric surgery Ortho: Spine surgery - Present Medications Home Medications: Ambulatory Orders Medication Instructions Recorded Confirmed Losartan [Cozaar] 50 mg PO DAILY 04/21/14 07/12/19 Multivitamin [Multi-Vitamin Daily] 1 tab PO DAILY 04/21/14 07/12/19 Fluoxetine HCl [Prozac] 20 mg PO BID 04/20/17 07/12/19 Gabapentin 100 mg PO DAILY 04/20/17 07/12/19 Alendronate Sodium 70 mg PO Q7D 07/12/19 07/12/19 Apixaban [Eliquis] 5 mg PO BID 07/12/19 07/12/19 Famotidine [Pepcid] 20 mg PO QPM 07/12/19 07/12/19 Gabapentin [Neurontin] 600 mg PO QPM 07/12/19 07/12/19 Prazosin HCl [Minipress] 2 mg PO QPM 07/12/19 07/12/19 QUEtiapine [SEROquel] 150 mg PO QPM 07/12/19 07/12/19 Trazodone HCl 150 mg PO QPM 07/12/19 07/12/19 Zolpidem Tartrate 5 mg PO .3XWEEK PRN 07/12/19 07/12/19 Zolpidem Tartrate [Ambien Cr] 6.25 mg PO .3XWEEK PRN 07/12/19 07/12/19 hydroCHLOROthiazide 12.5 mg PO DAILY 07/12/19 07/12/19 [Hydrochlorothiazide] lamoTRIgine [Lamictal Xr] 300 mg PO DAILY 07/12/19 07/12/19 Amoxicillin 500 mg PO BID #12 capsule 07/13/19 Ferrous Sulfate 325 mg PO DAILY #15 tablet 07/13/19 Saccharomyces Boulardii [Florastor] 250 mg PO DAILY #6 capsule 07/13/19 - Allergies Allergies/Adverse Reactions: Allergies Allergy/AdvReac Type Severity Reaction Status Date / Time diclofenac sodium * Allergy Unknown Verified 04/20/23 16:38 [From Arthrotec] hornet venom Allergy Anaphylaxis Verified 04/20/23 16:38 iodine Allergy Rash Verified 04/20/23 16:38 misoprostol [From Arthrotec] Allergy Unknown Verified 04/20/23 16:38 morphine Allergy Unknown Verified 04/20/23 16:38 streptomycin [Streptomycin] Allergy Unknown Verified 04/20/23 16:38 albuterol AdvReac Anxiety Verified 04/20/23 16:38 - Living Situation Living Situation: reports: With spouse/s.o. Living Arrangement: reports: At home - Social History Does the pt smoke?: No Smoking Status: Never smoker Does the pt drink ETOH?: No Does the pt have substance abuse?: No - Family History Family history: reports: Non contributory - Immunizations Immunizations are current?: Yes - POLST Patient has POLST: No PD ED PE NORMAL - Vitals Vital signs reviewed: Yes - General General: Alert and oriented X 3, Well developed/nourished, Other (gauze wrapped around forehead/head with pads under it. These have blood soaked into them. ) - HEENT HEENT: PERRL, EOMI, Pharynx benign, Dentition benign (no pain with occlusion. There is brusising of the chin. ) - Neck Neck: Supple, no meningeal sign, No bony TTP, Other (some tender lower neck to sides without deformity. Without cervical collar.) - Cardiac Cardiac: No: RRR (irregular but controlled rate. ) - Respiratory Respiratory: No respiratory distress, Clear bilaterally, Other (no chestwall tednerness) - Abdomen Abdomen: Soft, Non tender - Back Back: No spinal TTP - Derm Derm: Normal color, Warm and dry - Extremities Extremities: No edema, Other (tenderness of anterior right knee without deformity. No lacs. No effusion. ) - Neuro Neuro: Alert and oriented X 3, No motor deficit, No sensory deficit, Normal speech Results - Vitals Vitals: Vital Signs - 24 hr 04/20/23 04/20/23 04/20/23 16:38 17:54 18:26 Temperature 36.6 C Heart Rate 68 59 L 45 L Respiratory 18 16 16 Rate Blood Pressure 153/107 H 127/94 H 91/76 O2 Saturation 97 98 99 04/20/23 04/20/23 04/20/23 18:29 18:49 21:08 Temperature Heart Rate 52 L 52 L 68 Respiratory 16 16 16 Rate Blood Pressure 95/63 131/75 H 154/96 H O2 Saturation 100 100 96 Oxygen O2 Source Room air - Labs Labs: Laboratory Tests 04/20/23 04/20/23 16:40 16:40 WBC 4.2 L RBC 4.06 L Hgb 13.1 Hct 40.5 MCV 99.8 H MCH 32.3 H MCHC 32.3 RDW 15.1 H Plt Count 281 MPV 9.0 Neut # (Auto) 2.6 Lymph # (Auto) 1.1 L [place] # (Auto) 0.4 Eos # (Auto) 0.1 Baso # (Auto) 0.0 Absolute Nucleated RBC 0.00 Nucleated RBC % 0.0 Sodium 138 Potassium 4.6 H Chloride 105 Carbon Dioxide 27 Anion Gap 6.0 BUN 14 Creatinine 1.0 Estimated GFR (MDRD) 55 L Glucose 100 Calcium 8.7 Total Bilirubin 0.5 AST 16 ALT 10 Alkaline Phosphatase 92 Total Protein 6.6 Albumin 3.7 Globulin 2.9 Albumin/Globulin Ratio 1.3 Lipase 15 - Rads (name of study) head CT Relevant Findings:: Prelim report reviewed, EMP independent interpretation of test (no ICH nor acute findings. ) cervical CT Relevant Findings:: Prelim report reviewed, EMP independent interpretation of test (arthritic changes without fractures. ) right knee xray Relevant Findings:: Prelim report reviewed (no fractures. Arthritic changes noted. ), EMP independent interpretation of test Procedures - Laceration (location) upper mid forehead. Length in cm: 3.2 Wound type: Linear, Into subcut fat, Clean Neurovascular status: Sensory intact Anesthesia: Lidocaine 1% with epi Wound preparation: Irrigated copiously NS, Wound explored, To the base Deep layer closure: Vicryl, size #-0 - enter number (5), # sutures - enter number (3) Skin layer closure: Nylon, Running, Size #-0 - enter number (5), Sutures - enter # (10) Other: Patient tolerated well, No complications, Dressing applied, Tetanus UTD PD Medical Decision Making - ED course Complexity details: considered differential (there was blood staining of her gauze/wrap around forehead but dripping out. I held priority for wanting CT head/neck to ensure no ICH/fracture and felt the wound/suturing was stable with regard to degree of bleeding. ), d/w patient Reviewed Lab Results: Pt alert and conversant. Normal enuro exam. To CT to eval for ICH since on DOAC. On return, I prepeped for suturing with pt agreement. Mild bleeding during it. Placed sutures and bleeding stopped. She did feel lightheaded briefly after mostly done the suturing. Laid more flat and then given some fluid in her IV and felt improved withoin minute or two. No LOC during it. BP taken during this was smildly low at 90s systolic, that improved to 133 systolic promptly. Continued to feel okay after that. Departure - Departure Disposition: 01 Home, Self Care Clinical Impression: Fall from slip, trip, or stumble, Forehead laceration, Anticoagulant long-term use, Knee contusion, Neck strain Condition: Stable Record reviewed to determine appropriate education?: Yes Instructions: ED Laceration All Follow-Up: Bharti Alvarado ARNP [Primary Care Provider] - Comments: It is okay to wash and shower. Clean off the wound twice a day with soap and water, or peroxide and water. Apply some antibiotic ointment to it to keep it moist. Also to watch for signs of infection such as purulence, redness or increasing pain. Return to your primary care or the ER at the specified time for suture removal. Suture removal 8 to 10 days. Ice to the swollen areas or cool towels to help reduce swelling, particularly the forehead and knee. For the neck you may find heat to actually feel better with range of motion. Your CT scans of the head and neck did not show any fractures or bleeding inside. Your knee x-ray does not show any fractures. You did have some blood loss with the bleeding today. Be aware you will be more easily lightheaded and such over the next several days. Hydrate well. I would suggest some Tylenol 650 mg 4 times daily to help with pain over the next several days to week. He did have a transient drop in blood pressure here while the end of the suturing. Probably combination of factors of the adrenaline wearing off, with some blood loss, the thought of it etc. Be wary of getting up slowly and moving around slowly over the next few days as you likely be a little bit lightheaded during activity. Forms: PCP List Discharge Date/Time: 04/20/23 21:03
[2023-04-20] MEDS ORDERED: LIDOCAINE 1%-EPI 1:100000 20 ML MDV SUBQ STA (16:51)
[2023-04-20] MEDS ORDERED: ACETAMINOPHEN 325 MG TABLET PO STA (16:51)
[2023-04-20] MEDS ORDERED: KETOROLAC 15 MG/ML VIAL IVP STA (16:51)
[2023-04-20] MEDS ORDERED: fentaNYL 100 MCG/2 ML VIAL IVP STA (16:54)
--- NOTE | 2023-04-20 17:26 | CT Report ---
PROCEDURE: CERVICAL SPINE WO INDICATIONS: fall, struck head; head/neck pain TECHNIQUE: Noncontrast 3 mm thick sections acquired from the skull base to the T4 level. Sagittal and coronal r eformats were then constructed. For radiation dose reduction, the following was used: automated exp osure control, adjustment of mA and/or kV according to patient size. COMPARISON: None. FINDINGS: Image quality: Excellent. Bones: No fractures or dislocations. There is loss of the expected cervical lordosis. Severe degener ative changes are present throughout the cervical spine including intervertebral disc space narrowing , endplate sclerosis, and osteophytosis. Visualized superior ribs are intact. Soft tissues: There is mild right and marked left maxillary sinus mucosal thickening which is incompl etely characterized on this limited view. Prevertebral soft tissues are normal in thickness. No para vertebral hematomas. No apical pneumothoraces. IMPRESSION: 1. No acute cervical spine injury. 2. Severe degenerative change of the cervical spine. 3. Bilateral maxillary sinusitis, incompletely characterized. Reviewed by: Aline Laws MD on 04/20/2023 5:25 PM PDT Approved by: Aline Laws MD on 04/20/2023 5:25 PM PDT Station ID: [id number]
--- NOTE | 2023-04-20 17:27 | CT Report ---
PROCEDURE: HEAD WO INDICATIONS: fall, struck head. on Eliquis TECHNIQUE: Noncontrast 4.5 mm thick angled axial sections acquired from the foramen magnum to the vertex. For r adiation dose reduction, the following was used: automated exposure control, adjustment of mA and/or kV according to patient size. COMPARISON: CT head 07/12/2019 FINDINGS: Image quality: Excellent. CSF spaces: Basal cisterns are patent. No extra-axial fluid collections. Ventricles are normal in size and shape. Brain: No midline shift. No intracranial masses or hemorrhage. Age-related global volume loss and c hronic microvascular ischemic changes. [place]-white matter interface is normal. Skull and face: Bending over the left scalp. No large hematomas. Calvarium and visualized facial bone s are intact, without suspicious lesions. Bilateral lens replacements. The orbits are otherwise norm al in appearance. Sinuses: Bilateral maxilla sinus mucosal thickening. The mastoids are clear. IMPRESSION: No acute intracranial pathology. Reviewed by: Alli Loyola MD on 04/20/2023 5:26 PM PDT Approved by: Alli Loyola MD on 04/20/2023 5:26 PM PDT Station ID: [id number]
--- NOTE | 2023-04-20 17:53 | XRAY Report ---
PROCEDURE: Knee 3 View RT INDICATIONS: fall, sturck knee, with pain TECHNIQUE: 3 views of the right knee(s) were acquired. COMPARISON: None. FINDINGS: Bones: No fractures or dislocations. Posterior changes from medial unicondylar arthroplasty. Degener ative changes of the knee with osteophytosis and mild patellofemoral joint space narrowing. Diffusely decreased osseous mineralization. No suspicious bony lesions. Soft tissues: No knee joint effusion. No suspicious soft tissue calcifications or masses. Chondroca lcinosis. IMPRESSION: No acute bony abnormality. Medial compartment arthroplasty is intact without evidence of complication . Chondrocalcinosis. Reviewed by: Alli Loyola MD on 04/20/2023 5:52 PM PDT Approved by: Alli Loyola MD on 04/20/2023 5:52 PM PDT Station ID: [id number]
[2023-04-20] MEDS ORDERED: SODIUM CHLORIDE 0.9% 1,000 ML IV STA ×2 (18:27→19:49)
[2023-04-20 18:51] LABS: BASOPHILS % (AUTO) 0.7 %; EOSINOPHILS # (AUTO) 0.1 10^3/uL (0.0-0.7); EOSINOPHILS % (AUTO) 2.1 %; HCT - HEMATOCRIT 40.5 % (37.0-47.0); HGB - HEMOGLOBIN 13.1 g/dL (12.0-16.0); LYMPHOCYTES # (AUTO) 1.1 10^3/uL (1.5-3.5); LYMPHOCYTES % (AUTO) 25.7 %; MEAN CORPUSCULAR HEMOGLOBIN 32.3 pg (27.0-31.0); MEAN CORPUSCULAR HGB CONC 32.3 g/dL (32.0-36.0); MEAN CORPUSCULAR VOLUME 99.8 fL (81.0-99.0); MONOCYTES # (AUTO) 0.4 10^3/uL (0.0-1.0); NEUTROPHILS # (AUTO) 2.6 10^3/uL (1.5-6.6); PLT - PLATELET COUNT 281 10^3/uL (130-450); RED BLOOD COUNT 4.06 10^6/uL (4.20-5.40); RED CELL DISTRIBUTION WIDTH 15.1 % (12.0-15.0); WHITE BLOOD COUNT 4.2 x10^3/uL (4.8-10.8)
[2023-04-20 19:00] LABS: ALBUMIN 3.7 g/dL (3.2-5.5); ALBUMIN/GLOBULIN RATIO 1.3 (1.0-2.2); BILIRUBIN,TOTAL 0.5 mg/dL (0.2-1.0); CALCIUM 8.7 mg/dL (8.5-10.3); POTASSIUM 4.6 mmol/L (3.5-4.5); TOTAL PROTEIN 6.6 g/dL (6.4-8.9)
[2023-04-20 21:12] VITALS: BP 154/96; O2SAT 96
== END 2023-04-20 21:03 | disposition home or self-care (01) ==
LOC: EDUNIT# → ED 16:33
DX: S01.81XA Laceration without foreign body of other part of head, initial encounter (principal); S16.1XXA Strain of muscle, fascia and tendon at neck level, initial encounter; S80.01XA Contusion of right knee, initial encounter; W01.0XXA Fall on same level from slipping, tripping and stumbling without subsequent striking against object, initial encounter; I48.91 Unspecified atrial fibrillation; Z79.01 Long term (current) use of anticoagulants
CPT/HCPCS: 12013; 36415; 70450; 72125; 73562; 80053; 83690; 85025; 96374; 96375; 99284; A9270

== ENCOUNTER 2023-04-26 13:59 | Emergency (ER) | payer MEDICARE, OTHER ==
--- NOTE | 2023-04-26 15:22 | ED Physician Documentation ---
PD HPI CHEST PAIN - Stated complaint Stated Complaint: SOA,CHEST PX - Chief complaint Chief Complaint: Cardiac - History obtained from History obtained from: Patient - Additional information Additional information: Patient is a 72-year-old female presenting for evaluation of left-sided chest pain especially that is worse with moving and taking a deep breath and coughing. Patient had a ground-level fall earlier in this week with multiple contusions including a head laceration and is on Eliquis for history of A-fib. Patient states that she initially was feeling sore but pain in this area worsened yesterday When she also noticed bruising to the area. Most. No shortness of air, abdominal pain, vomiting. Reports she feels sore all over especially in areas where she is bruised. Review of Systems Constitutional: denies: Fever Cardiac: reports: Chest pain / pressure Respiratory: denies: Dyspnea GI: denies: Abdominal Pain, Vomiting Skin: reports: Other (Bruising) Neurologic: denies: Headache PD PAST MEDICAL HISTORY - Past Medical History Past Medical History: Yes Cardiovascular: Hypertension, Atrial fibrillation Respiratory: Sleep apnea, CPAP use Neuro: None Endocrine/Autoimmune: None GI: GERD, Other [employer] ON CALL: None : None HEENT: None Psych: Depression, Anxiety Musculoskeletal: Fibromyalgia Derm: None - Past Surgical History Past Surgical History: Yes General: Cholecystectomy, Gastric surgery Ortho: Knee replacement, Spine surgery - Present Medications Home Medications: Ambulatory Orders Medication Instructions Recorded Confirmed Losartan [Cozaar] 50 mg PO DAILY 04/21/14 04/26/23 Multivitamin [Multi-Vitamin Daily] 1 tab PO DAILY 04/21/14 04/26/23 Gabapentin 100 mg PO DAILY 04/20/17 07/12/19 Alendronate Sodium 70 mg PO Q7D 07/12/19 04/26/23 Apixaban [Eliquis] 5 mg PO BID 07/12/19 04/26/23 Famotidine [Pepcid] 20 mg PO QPM 07/12/19 04/26/23 Gabapentin [Neurontin] 600 mg PO QPM 07/12/19 07/12/19 QUEtiapine [SEROquel] 150 mg PO QPM 07/12/19 04/26/23 Trazodone HCl 150 mg PO QPM 07/12/19 04/26/23 Zolpidem Tartrate 5 mg PO .3XWEEK PRN 07/12/19 04/26/23 hydroCHLOROthiazide 12.5 mg PO DAILY 07/12/19 04/26/23 [Hydrochlorothiazide] lamoTRIgine [Lamictal Xr] 300 mg PO DAILY 07/12/19 04/26/23 Saccharomyces Boulardii [Florastor] 250 mg PO DAILY #6 capsule 07/13/19 04/26/23 DULoxetine [Cymbalta] 60 mg PO DAILY 04/26/23 04/26/23 Furosemide [Lasix] 20 mg PO DAILY 04/26/23 04/26/23 Oxycodone HCl/Acetaminophen 1 each PO Q6H PRN #14 tablet 04/26/23 [Percocet 5-325 mg Tablet] - Allergies Allergies/Adverse Reactions: Allergies Allergy/AdvReac Type Severity Reaction Status Date / Time diclofenac sodium * Allergy Unknown Verified 04/26/23 14:03 [From Arthrotec] hornet venom Allergy Anaphylaxis Verified 04/26/23 14:03 iodine Allergy Rash Verified 04/26/23 14:03 misoprostol [From Arthrotec] Allergy Unknown Verified 04/26/23 14:03 morphine Allergy Unknown Verified 04/26/23 14:03 streptomycin [Streptomycin] Allergy Unknown Verified 04/26/23 14:03 albuterol AdvReac Anxiety Verified 04/26/23 14:03 - Social History Does the pt smoke?: No Smoking Status: Former smoker Does the pt drink ETOH?: No Does the pt have substance abuse?: No - Immunizations Immunizations are current?: Yes - POLST Patient has POLST: No PD ED PE NORMAL - General General: Alert and oriented X 3, No acute distress, Well developed/nourished - HEENT HEENT: PERRL, EOMI, Pharynx benign, Other (Bruising to forehead and chin, well- healing laceration to forehead) - Neck Neck: Supple, no meningeal sign - Cardiac Cardiac: RRR, No murmur, Other (Left-sided upper chest wall bruising with tenderness on palpation as well as tenderness to the upper thoracic region on the left, no crepitus) - Respiratory Respiratory: No respiratory distress, Clear bilaterally - Abdomen Abdomen: Soft, Non tender, Non distended - Derm Derm: Other (Bruising to Multiple sites) - Extremities Extremities: Other (Contusions to both knees) - Neuro Neuro: Alert and oriented X 3, No motor deficit, No sensory deficit, Normal speech Results - Vitals Vitals: Vital Signs - 24 hr 04/26/23 04/26/23 04/26/23 14:03 14:36 15:58 Temperature 36.7 C 36.4 C L Heart Rate 65 61 63 Respiratory 20 18 16 Rate Blood Pressure 158/111 H 203/114 H 134/89 H O2 Saturation 98 97 98 Oxygen O2 Source Room air - EKG (time done) 1412 EKG releavant findings:: EKG personally interpreted by author of this note. Relevant findings are: Rate 66, normal sinus rhythm, no STEMI, no ST depressions PD Medical Decision Making - ED course Complexity details: reviewed results, re-evaluated patient, d/w patient ED course: Patient is a 72-year-old female presenting for evaluation of left-sided chest pain in setting of bruising and recent falls. Her pain is worse with movements and coughing. She does have reproducible tenderness and has bruising to the site and this strongly appears to be musculoskeletal in etiology. EKG was obtained by nursing directed orders which is nonischemic. Chest x-ray which I reviewed is negative for visible rib fracture or pneumothorax. Patient also requested x-ray of the left knee as this also has a bruise and was not imaged previously but then patient changed her mind and did not want an x-ray. Patient's vitals are stable here. She does have a nonproductive cough. Discussed continued supportive care with trial of pain medications as well as close follow-up with PCP. Patient is counseled on concerning symptoms to return for. Departure - Departure Disposition: 01 Home, Self Care Clinical Impression: Chest wall pain, Chest wall contusion, Contusion, multiple sites Condition: Stable Instructions: ED Contusion Chest Wall Prescriptions: Oxycodone HCl/Acetaminophen [Percocet 5-325 mg Tablet] 1 each PO Q6H PRN #14 tablet PRN Reason: pain Comments: Your chest and rib x-ray does not show signs of a broken rib. However sometimes x-rays can miss rib fractures. You do have bruising to the area. I am sending a prescription for small amount of narcotic pain medication to [facility]. Please use this only as directed. Return to the emergency department with any new or worsening symptoms. I am prescribing a short course of narcotic pain medication for you. These are potentially dangerous and addictive medications that should be used carefully. These medications may constipate you. Take an [id number] stool softener (docusate) twice daily with plenty of water while taking these medications. If you go 24 hours without a bowel movement, take [id number] miralax, per package instructions. Do not drink or drive while taking these medications. If you received narcotic or sedating medications while in the emergency department, do not drive for 24 hours. Store this medication in a safe, secure place and out of reach of children. It is a violation of federal law to give or sell this medication to another person or to use in a manner other than prescribed. The ED will not refill narcotic prescriptions, including prescriptions lost or stolen. To dispose of unwanted medications: 1. [facility] [address] in [place] has a medication drop box. They accept prescription medications (in pill form) Thursday through Thursday 9:00 a.m. to 5:00 p.m. 2. [facility] accepts prescription medications (in pill form only) for disposal year round. Call for more information. 3. Contact the [facility] for the next [facility] sponsored prescription drug collection event. , [phone], or [phone]; Note that many narcotic pain relievers also contain Tylenol/acetaminophen. Please ensure that your total dose of acetaminophen from all sources does not exceed 3 g (3000 mg) per day. Forms: PCP List Discharge Date/Time: 04/26/23 16:03
--- NOTE | 2023-04-26 15:25 | XRAY Report ---
PROCEDURE: Ribs w/PA Chest LT INDICATIONS: L sided CP;fall TECHNIQUE: 2 views of the left ribs were acquired, along with a single view chest. COMPARISON: Correlation is made with chest x-ray, 07/12/2019 FINDINGS: Surgical changes and devices: Upper abdominal clips are seen. Lumbar spine fixation hardware is part ially seen. Bones and chest wall: No fractures or dislocations. No suspicious bony lesions. Overlying soft tis sues appear unremarkable. Lungs and pleura: No pleural effusions or pneumothorax. Lungs appear clear. Mediastinum: Mediastinal contours appear normal. Heart size is normal. IMPRESSION: No displaced rib fracture or pneumothorax. Reviewed by: Rogelio Dougherty MD on 04/26/2023 2:23 PM [facility] Approved by: Rogelio Dougherty MD on 04/26/2023 2:23 PM [facility] Station ID: [id number]
[2023-04-26] MEDS ORDERED: oxyCODONE 5 MG TABLET PO STA (15:35)
[2023-04-26 16:17] VITALS: BP 134/89; O2SAT 98
== END 2023-04-26 16:03 | disposition home or self-care (01) ==
LOC: ED 13:59
DX: S20.212A Contusion of left front wall of thorax, initial encounter (principal); S80.02XA Contusion of left knee, initial encounter; S80.01XA Contusion of right knee, initial encounter; S00.83XA Contusion of other part of head, initial encounter; W18.30XA Fall on same level, unspecified, initial encounter; I10 Essential (primary) hypertension; I48.91 Unspecified atrial fibrillation; Z91.81 History of falling; Z79.01 Long term (current) use of anticoagulants; Z79.899 Other long term (current) drug therapy; Z87.891 Personal history of nicotine dependence
CPT/HCPCS: 71101; 93005; 99284; A9270

== ENCOUNTER 2024-01-12 08:16 | Outpatient (CLI) | payer MEDICARE, OTHER | END 2024-01-12 23:59 | disposition critical access hospital (66) | LOC: EMS 08:16 | DX: R11.2 Nausea with vomiting, unspecified (principal); R53.81 Other malaise | CPT/HCPCS: A0425; A0427 ==

== ENCOUNTER 2024-01-12 08:30 | Emergency (ER) | payer MEDICARE, OTHER ==
--- NOTE | 2024-01-12 08:39 | ED Physician Documentation ---
PD HPI ABD PAIN - Stated complaint Stated Complaint: NAUSEA/VOMITING - Chief complaint Chief Complaint: Abd Pain - History obtained from History obtained from: Patient, Family - Additional information Additional information: 73-year-old lady with history of A-fib on Eliquis, CHF currently being treated with Wegovy for weight loss. She presents with nausea and vomiting since last night. She states she increased her Wegovy dose on Thursday. She is not sure of the dose but it is her second dose increase. Last week she had 1 day with "explosive, volcano like" diarrhea which had resolved. Was doing fine until last evening. Mild abdominal cramping. Normal bowel movement so far. not ill. No fevers or chills. Surgical history of gastric bypass, hiatal hernia repair, cholecystectomy. Review of Systems Constitutional: denies: Fever, Chills Cardiac: denies: Chest pain / pressure Respiratory: denies: Dyspnea PD PAST MEDICAL HISTORY - Past Medical History Cardiovascular: Congestive heart failure, Hypertension, Atrial fibrillation Respiratory: Sleep apnea, CPAP use Neuro: None Endocrine/Autoimmune: None GI: GERD, Other PRODUCT MGMT DEV MANAGER: None : None HEENT: None Psych: Depression, Anxiety Musculoskeletal: Fibromyalgia Derm: None - Past Surgical History Past Surgical History: Yes General: Cholecystectomy, Gastric surgery Ortho: Knee replacement, Spine surgery - Present Medications Home Medications: Ambulatory Orders Medication Instructions Recorded Confirmed Losartan [Cozaar] 50 mg PO DAILY 04/21/14 04/26/23 Multivitamin [Multi-Vitamin Daily] 1 tab PO DAILY 04/21/14 04/26/23 Gabapentin 100 mg PO DAILY 04/20/17 07/12/19 Alendronate Sodium 70 mg PO Q7D 07/12/19 04/26/23 Apixaban [Eliquis] 5 mg PO BID 07/12/19 04/26/23 Famotidine [Pepcid] 20 mg PO QPM 07/12/19 04/26/23 Gabapentin [Neurontin] 600 mg PO QPM 07/12/19 07/12/19 QUEtiapine [SEROquel] 150 mg PO QPM 07/12/19 04/26/23 Trazodone HCl 150 mg PO QPM 07/12/19 04/26/23 Zolpidem Tartrate 5 mg PO .3XWEEK PRN 07/12/19 04/26/23 hydroCHLOROthiazide 12.5 mg PO DAILY 07/12/19 04/26/23 [Hydrochlorothiazide] lamoTRIgine [Lamictal Xr] 300 mg PO DAILY 07/12/19 04/26/23 Saccharomyces Boulardii [Florastor] 250 mg PO DAILY #6 capsule 07/13/19 04/26/23 DULoxetine [Cymbalta] 60 mg PO DAILY 04/26/23 04/26/23 Furosemide [Lasix] 20 mg PO DAILY 04/26/23 04/26/23 Oxycodone HCl/Acetaminophen 1 each PO Q6H PRN #14 tablet 04/26/23 [Percocet 5-325 mg Tablet] Ondansetron Odt [Zofran] 4 mg TL Q6H PRN #10 tablet 01/12/24 - Allergies Allergies/Adverse Reactions: Allergies Allergy/AdvReac Type Severity Reaction Status Date / Time diclofenac sodium * Allergy Unknown Verified 04/26/23 14:03 [From [employer]] hornet venom Allergy Anaphylaxis Verified 04/26/23 14:03 misoprostol [From [employer]] Allergy Unknown Verified 04/26/23 14:03 morphine Allergy Unknown Verified 04/26/23 14:03 streptomycin [Streptomycin] Allergy Unknown Verified 04/26/23 14:03 iodine AdvReac Intermediate Diaphoresis Verified 01/12/24 08:43 albuterol AdvReac Anxiety Verified 04/26/23 14:03 - Social History Does the pt smoke?: No Smoking Status: Never smoker Does the pt drink ETOH?: No Does the pt have substance abuse?: No - Immunizations Immunizations are current?: Yes - POLST Patient has POLST: No PD ED PE NORMAL - Vitals Vital signs reviewed: Yes - General General: Alert and oriented X 3, No acute distress - HEENT HEENT: Atraumatic, Moist mucous membranes - Neck Neck: Supple, no meningeal sign - Respiratory Respiratory: No respiratory distress - Abdomen Abdomen: Normal bowel sounds, Other (Mild epigastric tenderness. No guarding or rebound. Bowel sounds are present.) - Back Back: No CVA TTP - Derm Derm: Other (She has scattered bruises of her extremities and trunk.) - Extremities Extremities: No deformity, No edema, No calf tenderness / cord - Neuro Neuro: Alert and oriented X 3, No motor deficit, No sensory deficit, Normal speech - Psych Psych: Normal mood Results - Vitals Vitals: Vital Signs - 24 hr 01/12/24 01/12/24 01/12/24 08:31 10:37 12:00 Temperature 35.9 C L Heart Rate 77 78 69 Respiratory 14 22 12 Rate Blood Pressure 136/120 H 142/86 H 189/115 H O2 Saturation 93 98 95 01/12/24 13:42 Temperature Heart Rate 65 Respiratory 14 Rate Blood Pressure 181/111 H O2 Saturation 97 Oxygen O2 Source Room air - EKG (time done) 0903 EKG releavant findings:: EKG personally interpreted by author of this note. Relevant findings are: Normal sinus rhythm rate 65. Borderline prolonged QT interval of 486. Normal intervals otherwise. No ischemic changes noted. - Labs Labs: Laboratory Tests 01/12/24 01/12/24 01/12/24 08:49 08:49 08:49 WBC 4.9 RBC 3.97 L Hgb 12.4 Hct 39.2 MCV 98.7 MCH 31.2 H MCHC 31.6 L RDW 14.4 Plt Count 226 MPV 9.2 Neut # (Auto) 3.5 Lymph # (Auto) 0.8 L Cass # (Auto) 0.4 Eos # (Auto) 0.2 Baso # (Auto) 0.0 Absolute Nucleated RBC 0.00 Nucleated RBC % 0.0 PT 12.9 H INR 1.2 Sodium 140 Potassium 3.8 Chloride 106 Carbon Dioxide 25 Anion Gap 9.0 BUN 16 Creatinine 0.9 Estimated GFR (MDRD) 62 L Glucose 116 H Calcium 9.4 Total Bilirubin 0.6 AST 16 ALT 9 L Alkaline Phosphatase 105 Total Protein 7.0 Albumin 3.9 Globulin 3.1 Albumin/Globulin Ratio 1.3 Lipase < 10 L Urine Color Urine Clarity Urine pH Ur Specific [place] Urine Protein Urine Glucose (UA) Urine Ketones Urine Occult Blood Urine Nitrite Urine Bilirubin Urine Urobilinogen Ur Leukocyte Esterase Urine RBC Urine WBC Ur Squamous Epith Cells Urine Bacteria Urine Culture Comments 01/12/24 10:41 WBC RBC Hgb Hct MCV MCH MCHC RDW Plt Count MPV Neut # (Auto) Lymph # (Auto) Cass # (Auto) Eos # (Auto) Baso # (Auto) Absolute Nucleated RBC Nucleated RBC % PT INR Sodium Potassium Chloride Carbon Dioxide Anion Gap BUN Creatinine Estimated GFR (MDRD) Glucose Calcium Total Bilirubin AST ALT Alkaline Phosphatase Total Protein Albumin Globulin Albumin/Globulin Ratio Lipase Urine Color YELLOW Urine Clarity CLEAR Urine pH 6.0 Ur Specific [place] 1.020 Urine Protein NEGATIVE Urine Glucose (UA) NEGATIVE Urine Ketones 15 H Urine Occult Blood NEGATIVE Urine Nitrite NEGATIVE Urine Bilirubin NEGATIVE Urine Urobilinogen 0.2 (NORMAL) Ur Leukocyte Esterase TRACE H Urine RBC None Seen Urine WBC 4-5 Ur Squamous Epith Cells NONE SEEN Urine Bacteria None Seen Urine Culture Comments INDICATED PD Medical Decision Making - ED course Complexity details: reviewed old records, reviewed results, re-evaluated patient, considered differential ED course: patient is given IV fluids. She has multiple rounds of antiemetics and a small amount of pain medication. She initially failed a p.o. challenge but on recurrent dosing is tolerating p.o. She at one point has some headache, since she is on anticoagulation to check head CT which is benign. Lab work including CBC CMP and lipase are normal. She has no evidence of Wegovy induced pancreatitis. She has likely mild dehydration. She feels much much better after getting IV fluids. Will send her home with Zofran for nausea. Departure - Departure Disposition: Home, Self Care Clinical Impression: Vomiting, Dehydration Condition: Good Instructions: ED Abdominal Pain Female Non-Specific Abdominal Pain, ED Dehydration, ED Nausea Vomiting Prescriptions: Ondansetron Odt [Zofran] 4 mg TL Q6H PRN #10 tablet PRN Reason: Nausea / Vomiting Forms: PCP List Discharge Date/Time: 01/12/24 14:00
[2024-01-12] MEDS: ONDANSETRON 4 MG/2 ML VIAL IVP STA ×2 (08:51→09:38)
[2024-01-12] MEDS: SODIUM CHLORIDE 0.9% 1,000 ML IV STA (08:52)
[2024-01-12 09:00] LABS: BASOPHILS % (AUTO) 0.8 %; EOSINOPHILS # (AUTO) 0.2 10^3/uL (0.0-0.7); HCT - HEMATOCRIT 39.2 % (37.0-47.0); HGB - HEMOGLOBIN 12.4 g/dL (12.0-16.0); LYMPHOCYTES # (AUTO) 0.8 10^3/uL (1.5-3.5); LYMPHOCYTES % (AUTO) 17.1 %; MEAN CORPUSCULAR HEMOGLOBIN 31.2 pg (27.0-31.0); MEAN CORPUSCULAR HGB CONC 31.6 g/dL (32.0-36.0); MEAN CORPUSCULAR VOLUME 98.7 fL (81.0-99.0); MEAN PLATELET VOLUME 9.2 fL (7.9-10.8); MONOCYTES # (AUTO) 0.4 10^3/uL (0.0-1.0); MONOCYTES % (AUTO) 7.3 %; NEUTROPHILS # (AUTO) 3.5 10^3/uL (1.5-6.6); NEUTROPHILS % (AUTO) 71.2 %; PLT - PLATELET COUNT 226 10^3/uL (130-450); RED BLOOD COUNT 3.97 10^6/uL (4.20-5.40); RED CELL DISTRIBUTION WIDTH 14.4 % (12.0-15.0); WHITE BLOOD COUNT 4.9 x10^3/uL (4.8-10.8)
[2024-01-12] MEDS ORDERED: ACETAMINOPHEN 500 MG TABLET PO STA (09:04)
[2024-01-12 09:10] LABS: ALBUMIN 3.9 g/dL (3.2-5.5); ALBUMIN/GLOBULIN RATIO 1.3 (1.0-2.2); ALKALINE PHOSPHATASE 105 IU/L (42-121); ALT ALANINE AMINOTRANSFERASE 9 IU/L (10-60); AST ASPARTATE AMINOTRANSFERASE 16 IU/L (10-42); BILIRUBIN,TOTAL 0.6 mg/dL (0.2-1.0); BUN - BLOOD UREA NITROGEN 16 mg/dL (6-20); CALCIUM 9.4 mg/dL (8.5-10.3); CARBON DIOXIDE - CO2 25 mmol/L (21-32); CHLORIDE 106 mmol/L (101-111); CREATININE 0.9 mg/dL (0.6-1.3); GFR - MDRD 62 (>89); GLUCOSE 116 mg/dL (74-104); POTASSIUM 3.8 mmol/L (3.5-4.5); SODIUM 140 mmol/L (135-145)
[2024-01-12 09:11] LABS: LIPASE < 10 U/L (11-82)
[2024-01-12] MEDS: ACETAMINOPHEN 500 MG TABLET PO STA (09:16)
[2024-01-12 09:29] LABS: INR 1.2 (0.8-1.2); PT - PROTHROMBIN TIME 12.9 secs (9.9-12.6)
[2024-01-12 11:01] LABS: BILIRUBIN,URINE NEGATIVE (NEGATIVE); GLUCOSE, URINE (UA) NEGATIVE (NEGATIVE); KETONES,URINE (UA) 15 mg/dL (NEGATIVE); LEUKOCYTE ESTERASE, URINE TRACE (NEGATIVE); NITRITE,URINE NEGATIVE (NEGATIVE); OCCULT BLOOD,URINE NEGATIVE (NEGATIVE); PROTEIN,URINE NEGATIVE (NEGATIVE); UROBILINOGEN,URINE 0.2 (NORMAL) E.U./dL (NORMAL)
[2024-01-12 11:20] LABS: BACTERIA,URINE None Seen /HPF (None Seen); CLARITY,URINE CLEAR (CLEAR); RBC,URINE None Seen /HPF (0-5); SQUAMOUS EPITHELIAL CELL,UR NONE SEEN (<= Few)
--- NOTE | 2024-01-12 12:28 | CT Report ---
PROCEDURE: Head WO INDICATIONS: bad FUENTES, on xarelto TECHNIQUE: Noncontrast 4.5 mm thick angled axial sections acquired from the foramen magnum to the vertex. For r adiation dose reduction, the following was used: automated exposure control, adjustment of mA and/or kV according to patient size. COMPARISON: CT head 04/20/2023 FINDINGS: Image quality: Excellent. The ventricular system and cortical sulci demonstrate atrophy, consistent for patient's stated age. There are areas of hypodensity in the periventricular and subcortical white matter. There is no acut e intra or extra-axial fluid collection. No acute hemorrhage, mass lesion or midline shift. Brainst em is unremarkable. Globes are symmetrical. Sinuses demonstrate prominent mucosal thickening particularly in the maxillar y and sphenoid sinuses. Osseous structures are intact. IMPRESSION: 1. No acute intracranial process. 2. Mild atrophy and chronic microvascular ischemic changes. Reviewed by: Lulu Conklin MD on 01/12/2024 12:27 PM PDT Approved by: Lulu Conklin MD on 01/12/2024 12:27 PM PDT Station ID: [id number]
[2024-01-12] MEDS: METOCLOPRAMIDE 10 MG/2 ML VIAL IVP STA (12:43)
[2024-01-12] MEDS: HYDROmorphone 1 MG/ML CARPUJECT IVP STA (12:44)
[2024-01-12 13:54] VITALS: BP 181/111; O2SAT 97
== END 2024-01-12 14:00 | disposition home or self-care (01) ==
LOC: EDUNIT# → ED 08:30
DX: E86.0 Dehydration (principal); R11.10 Vomiting, unspecified; I48.91 Unspecified atrial fibrillation; I11.0 Hypertensive heart disease with heart failure; I50.9 Heart failure, unspecified; Z79.01 Long term (current) use of anticoagulants; Z79.899 Other long term (current) drug therapy; R90.82 White matter disease, unspecified
CPT/HCPCS: 36415; 70450; 80053; 81001; 83690; 85025; 85610; 87086; 93005; 96361; 96374; 96375; 96376; 99284; A9270; J1170; J2765